=== PATIENT | male | born 1950 | race Caucasian/White ===

== ENCOUNTER 2023-09-18 10:13 | Inpatient (IN) | payer MEDICARE, OTHER, SELFPAY ==
[2023-09-17] VITALS (11 sets, daily range): BP systolic 98–142; BP diastolic 72–97; BMI 23.4
[2023-09-17 14:09] LABS: % Basophils 0.3 % (0-2); % Immature Granulocytes 0.3 % (0-0.5); % Monocytes 6.2 % (1.7-9.3); % Neutrophils 84.2 % (42.2-75.2); Absolute Immature Granulocytes 0.1 10^3/uL (0-0.05); Absolute Lymphocytes 1.3 10^3/uL (1.2-3.4); Absolute Monocytes 0.9 10^3/uL (0.1-0.6); Absolute Neutrophils 12.4 10^3/uL (1.4-6.5); Hematocrit 50.9 % (39.0-52.0); Hemoglobin 17.6 g/dL (13.0-18.0); Mean Corp Hgb Conc. 34.6 g/dL (33.0-37.0); Mean Corpuscular Hgb 29.6 pg (27.0-31.0); Mean Corpuscular Volume 85.5 fL (80.0-94.0); Mean Platelet Volume 10.7 fL (7.4-10.4); Nucleated Red Blood Cells % 0 % (-); Platelet Count 217 10^3/uL (130-400); Red Blood Cell Count 5.95 10^6/uL (4.70-6.10); Red Cell Dist. Width 16.7 % (11.5-14.5); White Blood Cell Count 14.7 10^3/uL (4.8-10.8)
[2023-09-17] MEDS: NSS 1000 IV ×2 (14:19→21:07)
[2023-09-17] MEDS: ZOFRAN 4 MG IV (14:20)
[2023-09-17 14:33] LABS: ALT (SGPT) 23 U/L (0-50); AST (SGOT) 31 U/L (17-59); Albumin 4.7 g/dl (3.5-5.0); Alkaline Phosphatase 102 U/L (38-126); Blood Urea Nitrogen 18 mg/dl (9-20); Calcium 10.3 mg/dl (8.4-10.2); Carbon Dioxide 32 mmol/L (22-30); Chloride 101 mmol/L (98-107); Estimated Creatinine Clearance 85 ml/min; Glucose 133 mg/dl (70-99); Potassium 4.9 mmol/L (3.5-5.1); Sodium 143 mmol/L (135-145); Total Protein 7.9 g/dl (6.3-8.2); eGFR > 60.00
[2023-09-17] MEDS: MORPHINE SULFATE 4 MG IV (15:29)
[2023-09-17 15:38] LABS: Lipase 42 U/L (23-300)
--- NOTE | 2023-09-17 17:15 | ED.GENMED ---
History of Present Illness
General
Chief Complaint: Abdominal Symptoms
Time Seen by Provider: 09/17/23 13:51
History of Present Illness
History of Present Illness:
73-year-old male with history of dementia and pulmonary fibrosis presents to the emergency department for evaluation of intractable vomiting abdominal pain for the past 24 hours. History is unable to be obtained from the patient's secondary to
dementia however he is frequently grabbing his right lower quadrant.
Past History
Past History
ED Past Medical History: Hypercholesterolemia, Psychiatric (anxiety/depression) and Other (dementia)
Social History
Tobacco: Non-smoker
Personal:
Living: with family
Review of Systems
Review of Systems
Allergies reviewed?: Yes
All Other Systems: ROS reviewed and negative except as documented in HPI and ROS
Phy Exam
Physical Exam
Physical Exam:
GEN: Ill appearing, clutching the abdomen
HEENT: Oral mucosa moist, no scleral icterus
Cardiac: Regular rate and rhythm
Lung: No respiratory distress, no tachypnea
Abdomen: Soft, focal tenderness to RLQ
MSK: No gross deformity or injuries
Skin: Good color, no pallor or jaundice, no rashes
Neuro: AO x3, moves all extremities freely
Psych: Calm, cooperative
Course
Orders/Labs/Results
Orders:
Orders
09/17/23 13:57
CMP [Comprehensive Metabolic Panel] Urgent
Complete Blood Count/With Diff Urgent
Lipase Urgent
Comment: ADD ON
09/17/23 14:08
Add On- LAB Urgent
Tests Added?: lipase
CT Abd/Pel (IV only)-DH only Urgent
Comment:
Reason For Exam: RLQ pain intractable vomiting
0.9% Sodium Chloride 1000 ml [Nss] 1,000 ml IV BOLUS
Ondansetron Injectable [Zofran] 4 mg IV NOW STA
09/17/23 15:27
Morphine Sulfate 4 mg IV NOW STA
09/17/23 17:20
Ketorolac [Toradol] 15 mg IV NOW STA
09/17/23 17:21
Piperacillin/Tazo 3.375 Gram [Zosyn] 3.375 gram in 50 ml IV NOW
Abnormal Lab Results
09/17/23
13:57
WBC 14.7 H 10^3/uL
(4.8-10.8)
RDW 16.7 H %
(11.5-14.5)
MPV 10.7 H fL
(7.4-10.4)
Abs Immat Gran (auto) 0.1 H 10^3/uL
(0-0.05)
Absolute Neuts (auto) 12.4 H 10^3/uL
(1.4-6.5)
Absolute Monos (auto) 0.9 H 10^3/uL
(0.1-0.6)
Neutrophils % 84.2 H %
(42.2-75.2)
Lymphocytes % 9.0 L %
(20.5-51.1)
Carbon Dioxide 32 H mmol/L
(22-30)
Glucose 133 H mg/dl
(70-99)
Calcium 10.3 H mg/dl
(8.4-10.2)
09/17/23 13:57
09/17/23 13:57
Vital Signs
Initial and Last Documented VS:
Initial Vital Signs
Temp Pulse Resp BP Pulse Ox
98.3 F 96 16 116/85 94
09/17/23 13:34 09/17/23 13:34 09/17/23 13:34 09/17/23 13:34 09/17/23 13:34
Last Documented Vital Signs
Temp Pulse Resp BP Pulse Ox
98.3 F 96 16 98/86 92
09/17/23 13:34 09/17/23 13:34 09/17/23 13:34 09/17/23 16:23 09/17/23 15:00
MDM/Problems Addressed
MDM/Problems Addressed:
Jejunitis seen on CT is likely infectious given the acute onset of symptoms. He does have leukocytosis which could be hemoconcentration in the setting of hypovolemia nevertheless will cover with IV antibiotics. Due to his advanced age and
persistent vomiting family would prefer the patient to be admitted for supportive care which I find to be reasonable
*Critical Care Note
Total Time (30-74mins, 75-104mins- exclusive of procedures): Not Applicable
ED Attending Note
-
Portions of this chart may have been created with voice recognition software.� Occasional wrong word or��sound alike� substitutions may have occurred due to the inherent limitations of voice recognition software.
Discharge Plan
Departure
Patient Disposition: Admit
Date of Disposition: 09/17/23
Time of Disposition: 17:25
Presentation/result/management discussed w/ accepting MD/DO: Hospitalist
Discharge Problem:
Jejunitis
Prescriptions:
No Action
ergocalciferol (vitamin D2) 400 UNIT tablet
400 unit PO DAILY
Patient Comments:
pt unsure of exact dose of pill
aspirin 81 MG tablet,chewable
81 mg PO DAILY
finasteride 5 MG tablet
1.25 mg PO DAILY
moshe-vl-[id number]-bat-eph-vcwwuxp-ast [krill oil] 1 EACH capsule
1 ea PO DAILY
atorvastatin 20 MG tablet
20 mg PO DAILY
aspirin 325 MG tablet
325 mg PO NOW
cephalexin 500 mg capsule
500 mg PO Q8H Qty: 21 0RF
Referrals:
Yaakov Latif MD [Family Provider] -
Interventions
Interventions:
*Risk Screen - Suicide Last Done: 09/17/23 13:45
*General Assessment Last Done: 09/17/23 13:45
*Neglect/Abuse Screening Last Done: 09/17/23 13:45
ED- Fall Risk Assessment Last Done: 09/17/23 13:45
*ED COVID-19 Vaccine History Last Done: 09/17/23 13:45
VT-Jadzok-Kqpunoojfy Assessment Last Done: 09/17/23 13:45
Discharge Date and Time
Print Language: AZERI
[2023-09-17] MEDS: ZOSYN 50 IV (17:24)
[2023-09-17] MEDS: TORADOL 15 MG IV (17:24)
--- NOTE | 2023-09-17 17:43 | HPS.HSE ---
Family Physician
-
Family Physician: Yaakov Latif MD
Chief Complaint
-
intractable vomiting and abdominal pain
History of Present Illness
The patient is a 73 yo male with PMH significant for dementia, HLD, and pulmonary fibrosis on home oxygen at 2-3L per nasal cannula, presents to the ED due to intractable vomiting and right lower quadrant abdominal pain for the past day. He is
unable to take any orals including water due to the pain. His is providing his history due to the patient's underlying dementia. No fever, no CP, no SOB, he uses depends for urinary incontinence that started about a month ago.
He received ED txt: IVF bolus 1 liter NS, Zofran 4 mg IV, Morphine 4 mg IV once, Toradol 15 mg IV once, IV Zosyn, CT a/p with IV contrast only
Medical History
Past Medical History
Past Medical History: Reports CAD (non-obstructive), Hypercholesterolemia and Other (Dementia, pulmonary fibrosis, insomnia)
Past Surgical History: Reports None
Social History
Tobacco: Former Smoker
Alcohol: None
Personal:
Living: With Family
Family History
Family History: Not pertinent
Allergies / Home Medications
Allergies reflects when Allergies were last updated in [facility].
Home Medications with original date entered in [facility]
Allergy/Medication List:
Allergies
Allergy/AdvReac Type Severity Reaction Status Date / Time
No Known Allergies Allergy Verified 09/17/23 13:36
Home Medications
aspirin 81 mg chewable tablet 81 mg PO DAILY 11/07/16
cholecalciferol (vitamin D3) 25 mcg (1,000 unit) tablet 25 mcg PO DAILY 09/17/23
donepezil 5 mg tablet 5 mg PO DAILY 09/17/23
loperamide 2 mg capsule (Imodium A-D) 2 mg PO Q4HPRN PRN loose stool 09/17/23
prednisone 10 mg tablet 10 mg PO DAILY 09/17/23
sertraline 100 mg tablet 100 mg PO Q48H 09/17/23
atorvastatin 2.5 mg three times per week PO
Review of Systems
-
A 12 point ROS was completed and negative except as noted: Yes
Physical Exam
Vital Signs
Vital Signs
Temp Pulse Resp BP Pulse Ox
98.3 F 96 16 98/86 92
09/17/23 13:34 09/17/23 13:34 09/17/23 13:34 09/17/23 16:23 09/17/23 15:00
Physical Exam
General: Comfortable and Other (slightly agitated pulling/picking at lines and pulse oximeter)
HEENT: NormoCephalic, Anicteric and Moist mucous membranes
Respiratory: Clear
Cardiac: S1/S2 and Regular Rhythm
GI: Soft, Non Distended and Normal Bowel Sounds
Musculoskeletal: No Clubbing, No Cyanosis and No Edema
Skin: Warm and Dry
Neuro: Awake and Other (sleepy, underlying dementia)
Psych: Calm
Laboratory Results
-
09/17/23 13:57
09/17/23 13:57
Laboratory Results
Total Bilirubin 1.0 mg/dl (0.2-1.3) 09/17/23 13:57
AST 31 U/L (17-59) 09/17/23 13:57
ALT 23 U/L (0-50) 09/17/23 13:57
Alkaline Phosphatase 102 U/L (38-126) 09/17/23 13:57
Lipase 42 U/L (23-300) 09/17/23 13:57
Data Reviewed
-
CT Scan: Report Reviewed by me (iinfrarenal abdominal aortic aneurysm measuring 3.3 cm. There is a large left common iliac artery aneurysm measuring 3.8 cm with a large amount of noncalcified thrombus information along the posterior wall. This
narrows the lumen by at least 50%. There is a right common iliac artery aneurysm measuri)
Impression/Plan
-
IMPRESSION:
# Concern for Jejunitis, likely infectious etiology though possible inflammatory versus infectious, less likely ischemic, no evidence for obstruction nor diverticulitis
-CT a/p no oral contrast due to vomiting (IV constrast) - small bowel dilatation with associated mild small bowel wall thickening of the probable distal jejunum. Dilatation may be due to ileus. Developing obstruction cannot be excluded.
-abdomen is soft with normal bowel sounds at this time, will continue serial abdominal examination, monitor clinically
-continue IV Zosyn
-IV fluids
-NPO
-GI consultation placed and appreciated
-supportive management with pain medications, prn anti-emetics
-EKG in am for QT monitoring on Zofran prn
#Pulmonary fibrosis, on chronic prednisone 10 mg daily, stable at this time
-will give IV steroids for now until tolerating orals
-cont home O2 2 L NC and pulse oximetry monitoring
#Incidental findings on CT
-infrarenal abdominal aortic aneurysm measuring 3.3 cm.
-Left common iliac artery aneurysm measuring 3.8 cm with a large amount of noncalcified thrombus information along the posterior wall.
-Right common iliac artery aneurysm measuring 2.4 cm.
#Dementia, at baseline
DVT proph-Lovenox
Full Code confirmed with family
--- NOTE | 2023-09-17 21:00 | PTCARENOTE ---
Pt transferred from ED to 3W via stretcher, pt was a stand and pivot to bed. Pt very confuse, but able to be redirected. Pt vitals stable, call lake within reach and pt placed on bed alarm. Will continue to monitor.
[2023-09-17] MEDS: SOLU-CORTEF 25 MG IV (21:29)
[2023-09-17] MEDS: MORPHINE SULFATE 2 MG IV (23:49)
[2023-09-18 03:00] VITALS: BP 140/87
[2023-09-18] MEDS: MORPHINE SULFATE 2 MG IV ×3 (03:45→21:27)
[2023-09-18 06:00] VITALS: BMI 23.7
[2023-09-18] MEDS: ZOSYN 50 IV ×4 (06:08→23:11)
[2023-09-18 07:00] VITALS: BP 114/75
[2023-09-18] MEDS: LOW STRENGTH ASPIRIN 81 MG PO (08:20)
[2023-09-18] MEDS: ARICEPT 5 MG PO (08:20)
--- NOTE | 2023-09-18 09:11 | CON.GI ---
Addendum entered and electronically signed by Nash Carlson MD 09/18/23 16:08:
I personally performed a history and physical exam of the patient and discussed management with the resident. I reviewed the resident's note and agree with the documented findings and plan of care HPI/CC.
73-year-old male significant history of dementia, pulmonary fibrosis presenting with vomiting, abdominal pain, decreased p.o. intake. He underwent a CT scan here which showed jejunitis. He also had a white blood cell count up to 14.7. Patient's
history is very limited due to his dementia.
At this time, recommend antibiotics, advance diet as tolerated. He has minimal tenderness in his abdomen. I started him on a clear liquid diet. If there is any concern about his intake, consider speech pathology evaluation. Typically would
recommend MR enterography as an outpatient but with his dementia would likely hold off unless he has ongoing symptoms. Most likely this is infectious with the elevated white blood cell count and his symptomatology.
Original Note:
Medical History
Chief Complaint / HPI
Chief Complaint: Vomiting, abdominal pain
History of Present Illness:
History is limited due to patient's dementia and is mostly based on chart review.
Patient is a 73 yo M with PMH significant for dementia, HLD, and pulmonary fibrosis who was admitted with persistent vomiting, RLQ abdominal pain and inability to tolerate any orals. Symptoms seem to have appeared in an acute setting. Patient denies
loose stools. Last bowel movement was this a.m. which was soft.
On admission in ED, patient did not have fever. Labs revealed mild leukocytosis. CT (without oral contrast) showed mild small bowel dilatation with associated mild small bowel wall thickening of the probable distal jejunum. No signs of current
obstruction but developing obstruction could not be excluded.
We are consulted for evaluation of jejunitis.
Past Medical History
Past Medical History: Hypercholesterolemia and Other (dementia, pulmonary fibrosis)
Social History
Tobacco: Non-Smoker
Alcohol: None
Personal:
Living: With Family
Allergies / Home Medications
Allergy/AdvReac Type Severity Reaction Status Date / Time
No Known Allergies Allergy Verified 09/17/23 13:36
�Medication �Instructions �Recorded
aspirin 81 mg chewable tablet 81 mg PO DAILY Blood Clot 11/07/16
Prevention/Tx
cholecalciferol (vitamin D3) 25 25 mcg PO DAILY Supplement 09/17/23
mcg (1,000 unit) tablet
donepezil 5 mg tablet 5 mg PO DAILY Neurological 09/17/23
Condition
loperamide 2 mg capsule (Imodium 2 mg PO Q4HPRN PRN loose stool 09/17/23
A-D)
prednisone 10 mg tablet 10 mg PO DAILY Anti-Inflammatory 09/17/23
sertraline 100 mg tablet 100 mg PO Q48H Mental 09/17/23
Health/Anxiety
Review of Systems
-
Unable to obtain full review of systems at this time due to: Dementia
History Source: Patient
Vital Signs
Temp Pulse Resp BP Pulse Ox
97.8 F 91 17 114/75 97
09/18/23 07:00 09/18/23 07:00 09/18/23 07:00 09/18/23 07:00 09/18/23 07:00
Physical Exam
Exam
General: Well Developed and No Apparent Distress
HEENT: Anicteric and Moist Mucous Membranes
Cardiac: S1/S2 and Regular Rhythm
GI: Soft, Non Distended, Normal Bowel Sounds and Other (Mild RLQ tenderness)
Neuro: Awake, Alert and Oriented (oriented to time and self)
Psych: Calm
Results
WBC 14.7 10^3/uL (4.8-10.8) H 09/17/23 13:57
Hgb 17.6 g/dL (13.0-18.0) 09/17/23 13:57
Hct 50.9 % (39.0-52.0) 09/17/23 13:57
MCV 85.5 fL (80.0-94.0) 09/17/23 13:57
Plt Count 217 10^3/uL (130-400) 09/17/23 13:57
Absolute Neuts (auto) 12.4 10^3/uL (1.4-6.5) H 09/17/23 13:57
Sodium 143 mmol/L (135-145) 09/17/23 13:57
Potassium 4.9 mmol/L (3.5-5.1) 09/17/23 13:57
Chloride 101 mmol/L (98-107) 08 13:57
Carbon Dioxide 32 mmol/L (22-30) H 09/17/23 13:57
BUN 18 mg/dl (9-20) 08 13:57
Creatinine 0.8 mg/dL (0.7-1.3) 09/17/23 13:57
Calcium 10.3 mg/dl (8.4-10.2) H 09/17/23 13:57
Total Bilirubin 1.0 mg/dl (0.2-1.3) 09/17/23 13:57
AST 31 U/L (17-59) 09/17/23 13:57
ALT 23 U/L (0-50) 09/17/23 13:57
Alkaline Phosphatase 102 U/L (38-126) 09/17/23 13:57
Lipase 42 U/L (23-300) 09/17/23 13:57
Diagnostic Image Results:
Prior GI Procedures:
EGD:
Colonoscopy:
Assessment / Plan
-
Patient is alert and oriented to self. Is afebrile. Very mild RLQ tenderness on palpation. Abdomen is soft with normal bowel sounds. Patient is able to pass gas. No diarrhea reported by nursing staff. Is currently n.p.o..
# Jejunitis
Ddx includes infection vs inflammation and less likely ischemia.
-Continue IV Zosyn
-Continue supportive management with IV fluids, antiemetics as needed, pain management
-May advance diet later in the day if tolerated
-Monitor daily CBC, BMP
-May consider MR enterography as outpatient
-
-
Thank you for consultation and allowing me to participate in the patient's care. Please call the [facility] GI physician during the after hours with any questions or concerns.
[2023-09-18] MEDS: SOLU-CORTEF 25 MG IV ×2 (10:12→21:27)
[2023-09-18 10:32] LABS: % Basophils 0.3 % (0-2); % Eosinophils 0.1 % (0-6); % Immature Granulocytes 0.4 % (0-0.5); % Lymphocytes 5.2 % (20.5-51.1); % Monocytes 8.4 % (1.7-9.3); % Neutrophils 85.6 % (42.2-75.2); Absolute Immature Granulocytes 0.1 10^3/uL (0-0.05); Absolute Lymphocytes 0.7 10^3/uL (1.2-3.4); Absolute Monocytes 1.1 10^3/uL (0.1-0.6); Absolute Neutrophils 10.9 10^3/uL (1.4-6.5); Hemoglobin 15.6 g/dL (13.0-18.0); Mean Corp Hgb Conc. 33.2 g/dL (33.0-37.0); Mean Corpuscular Hgb 28.9 pg (27.0-31.0); Mean Platelet Volume 11.3 fL (7.4-10.4); Nucleated Red Blood Cells % 0 % (-); Platelet Count 181 10^3/uL (130-400); Red Cell Dist. Width 16.3 % (11.5-14.5); White Blood Cell Count 12.8 10^3/uL (4.8-10.8)
--- NOTE | 2023-09-18 10:48 | W.PN.HOSP.TC ---
Today's Communication/Plan
-
Keep NPO for now
IVF
IV Abx
Repeat abd x ray in AM
Assessment / Plan
Assessment / Plan
Physical Exam
General: Comfortable in bed.
HEENT: Normocephalic, Anicteric and Moist mucous membranes
Respiratory: Clear
Cardiac: S1/S2 and Regular Rhythm
GI: Soft, reports tenderness in right side of abdomen upon deep palpation
Musculoskeletal: No Clubbing, No Cyanosis and No Edema
Skin: Warm and Dry
Neuro: Awake and Other (sleepy, underlying dementia)
Psych: Calm
# Concern for Jejunitis, likely infectious etiology though possible inflammatory versus infectious, less likely ischemic, no evidence for obstruction nor diverticulitis
-CT a/p no oral contrast due to vomiting (IV contrast) - small bowel dilatation with associated mild small bowel wall thickening of the probable distal jejunum. Dilatation may be due to ileus. Developing obstruction cannot be excluded.
-abdomen is soft with normal bowel sounds at this time, will continue serial abdominal examination, monitor clinically
-continue IV Zosyn
-IV fluids
-NPO
-supportive management with pain medications, prn anti-emetics
-EKG in am for QT monitoring on Zofran prn
#Pulmonary fibrosis, on chronic prednisone 10 mg daily, stable at this time
-will give IV steroids for now until tolerating orals
-cont home O2 2 L NC and pulse oximetry monitoring
#Incidental findings on CT
-infrarenal abdominal aortic aneurysm measuring 3.3 cm.
-Left common iliac artery aneurysm measuring 3.8 cm with a large amount of noncalcified thrombus information along the posterior wall.
-Right common iliac artery aneurysm measuring 2.4 cm.
#Dementia, at baseline
DVT proph-Lovenox
Full Code
Total time spent to see the patient, examine the patient on the floor, review data and lab results, discuss treatment plan with patient, nursing staff around 55 minutes.
Anticipated Discharge: > 48 hours
Subjective/Interval History
-
Date of Service: September 18, 2023
No chest pain
No sob
He reports abd discomfort on exam
Objective Data
-
Labs:
Laboratory Results
09/18/23
09:56
WBC 12.8 H
Hgb 15.6
Hct 47.0
Plt Count 181
Sodium Pending
Potassium Pending
Chloride Pending
Carbon Dioxide Pending
BUN Pending
Creatinine Pending
Glucose Pending
Calcium Pending
Vital Signs:
Vital Signs
Temp Pulse Resp BP Pulse Ox
97.8 F 91 17 114/75 97
09/18/23 07:00 09/18/23 07:00 09/18/23 07:00 09/18/23 07:00 09/18/23 08:00
I&O
09/17/23 09/18/23 09/19/23
06:59 06:59 06:59
Intake Total 0 / 0
Balance 0 / 0
[2023-09-18 10:51] VITALS: BP 125/80
[2023-09-18 13:33] LABS: Blood Urea Nitrogen 21 mg/dl (9-20); Carbon Dioxide 26 mmol/L (22-30); Chloride 106 mmol/L (98-107); Estimated Creatinine Clearance 85 ml/min; Glucose 121 mg/dl (70-99); Potassium 4.4 mmol/L (3.5-5.1); Sodium 139 mmol/L (135-145); eGFR > 60.00
[2023-09-18 15:13] VITALS: BP 135/79
[2023-09-18] MEDS: LOVENOX 40 MG SC (17:04)
[2023-09-18 19:39] VITALS: BP 114/77
[2023-09-18 23:03] VITALS: BP 132/88
[2023-09-19] VITALS (8 sets, daily range): BP systolic 110–162; BP diastolic 73–94; PULSE 99; O2SAT 96; BMI 23.2
[2023-09-19] MEDS: MORPHINE SULFATE 2 MG IV (05:06)
[2023-09-19] MEDS: ZOSYN 50 IV ×3 (05:06→17:08)
[2023-09-19 07:59] LABS: Hemoglobin 15.5 g/dL (13.0-18.0); Mean Corp Hgb Conc. 34.4 g/dL (33.0-37.0); Mean Corpuscular Hgb 29.8 pg (27.0-31.0); Mean Corpuscular Volume 86.4 fL (80.0-94.0); Mean Platelet Volume 11.3 fL (7.4-10.4); Platelet Count 165 10^3/uL (130-400); Red Blood Cell Count 5.21 10^6/uL (4.70-6.10); Red Cell Dist. Width 15.8 % (11.5-14.5); White Blood Cell Count 12.7 10^3/uL (4.8-10.8)
[2023-09-19 08:31] LABS: Blood Urea Nitrogen 22 mg/dl (9-20); Carbon Dioxide 29 mmol/L (22-30); Estimated Creatinine Clearance 85 ml/min; Potassium 3.8 mmol/L (3.5-5.1); eGFR > 60.00
[2023-09-19] MEDS: ZOLOFT 100 MG PO (08:38)
[2023-09-19] MEDS: LOW STRENGTH ASPIRIN 81 MG PO (08:38)
[2023-09-19] MEDS: ARICEPT 5 MG PO (08:38)
[2023-09-19] MEDS: PROTONIX 20 MG PO (08:39)
[2023-09-19 08:41] LABS: Calcium 9.3 mg/dl (8.4-10.2); Chloride 102 mmol/L (98-107); Glucose 112 mg/dl (70-99); Sodium 139 mmol/L (135-145)
--- NOTE | 2023-09-19 09:30 | W.PN.HOSP.TC ---
Addendum entered and electronically signed by Patrick Dill MD 09/19/23 14:21:
Addendum
Patient could not finish full liquid diet. He felt fall with less than 50% of the tray. His belly nontender but possibly distended. Patient was unable to provide with history
Discussed with GI. Will keep the patient n.p.o. and ask surgery for evaluation.
Continue with IV antibiotic
Updated family and son Fredy Rodriges.
Addendum
d/w surgery, recommend to c/w bowel rest, hold diet, IV Abx, repeat x ray in am.
Will order IVF
change PPI to IV
ok with sips and oral meds.
Appreciate surgery input
End
Original Note:
Today's Communication/Plan
-
.
Assessment / Plan
Assessment / Plan
Physical Exam
General: Comfortable in bed.
HEENT: Normocephalic, Anicteric and Moist mucous membranes
Respiratory: Clear
Cardiac: S1/S2 and Regular Rhythm
GI: Soft, No tenderness in the abdomen upon deep palpation
Musculoskeletal: No Clubbing, No Cyanosis and No Edema
Skin: Warm and Dry
Neuro: Awake and Other (sleepy, underlying dementia)
Psych: Calm
# Concern for Jejunitis, likely infectious etiology though possible inflammatory versus infectious, less likely ischemic, no evidence for diverticulitis
Possibly developing ileus now
WBC still at 12, mostly steroid reaction. No fevers.
He seems to tolerate liquid well, no pain, no tenderness on exam today. Did not need anti-nausea medication.
It is hard to tell with him unable to express himself.
- repeat x ray showed dilated small bowel loops.
-abdomen is soft with normal bowel sounds at this time, will continue serial abdominal examination, monitor clinically
-continue IV Zosyn for now.
- trial of full liquid, pt felt full after eating 35% of the tray per staff. But NPO for now per GI until surgery input.
-supportive management with pain medications, prn anti-emetics
-EKG , normal QT interval.
Appreciate GI, surgery input.
#Pulmonary fibrosis, on chronic prednisone 10 mg daily, stable at this time
- Given IV steroids , will wean down to his usual dose. No hypotension.
-cont home O2 2 L NC and pulse oximetry monitoring
#Incidental findings on CT
-infrarenal abdominal aortic aneurysm measuring 3.3 cm.
-Left common iliac artery aneurysm measuring 3.8 cm with a large amount of noncalcified thrombus information along the posterior wall.
-Right common iliac artery aneurysm measuring 2.4 cm.
#Dementia, at baseline
reported agitation with morphine, will avoid it. Use Tylenol if needed
Mitts were placed last night. Removed today. was updated.
C/W Aricept, Zoloft [id number].
DVT proph-Lovenox
Full Code
Total time spent to see the patient, examine the patient on the floor, review data and lab results, discuss treatment plan with patient, , son, nursing staff around 55 minutes.
Anticipated Discharge: 24 - 48 hours
Subjective/Interval History
-
Date of Service: September 19, 2023
No sob
No chest pain
Denies abd pain
Objective Data
-
Labs:
Laboratory Results
09/19/23
07:43
WBC 12.7 H
Hgb 15.5
Hct 45.0
Plt Count 165
Sodium 139
Potassium 3.8
Chloride 102
Carbon Dioxide 29
BUN 22 H
Creatinine 0.8
Glucose 112 H
Calcium 9.3
Vital Signs:
Vital Signs
Temp Pulse Resp BP Pulse Ox
97.9 F 68 17 140/76 98
09/19/23 06:51 09/19/23 06:51 08/06/24 06:51 09/19/23 06:51 09/19/23 06:51
I&O
09/18/23 09/19/23 09/20/23
06:59 06:59 06:59
Intake Total 0 / 0 60 / 60
Balance 0 / 0 60 / 60
[2023-09-19] MEDS: SOLU-CORTEF 25 MG IV (10:16)
--- NOTE | 2023-09-19 12:29 | PTCARENOTE ---
B/L mitts discontinued at 1225. MD Dill made aware. sitter remains. bed low, rails up x3. bed alarm on. belongings and water in reach.
--- NOTE | 2023-09-19 12:47 | PN.CDI ---
CDI
- -
CDI:
Physician Documentation Request
Admit Date: 09/18/23 10:13
Dear Doctor Aniyah,
Please review the following and provide your response in the progress notes.
Clinical Indicators:
- per H&P 'pulmonary fibrosis on home oxygen at 2-3L per nasal cannula'
- Admission on room air at 94%
- 1-2L O2 with pulse ox >91%
Please clarify which of the following accurately represents the patient's respiratory status:
Chronic hypoxic respiratory failure
Chronic hypoxia
Other
Additional information for Respiratory Failure:
Recognized criteria for Respiratory Failure (Source: [facility] Dec 2012)
ABGs: (1 or more) Symptoms Please indicate type if known
1. p)2 <60 or RA SPO2 <91% on RA 1. Tachypnea, SOB, dyspnea Hypoxic
2. pCO2 50 and pH <7.35 2. Use of accessory muscles Hypercapnic
3. pO2 decrease of pCO2 increase by 3. Pallor or cyanosis Hypoxic and Hypercapnic
10 mmHg from baseline if known 4. Anxiety or restlessness Unable to determine
5. Unable to speak in full sentences
Supplemental O2 of > 40% (5LPM) Intubation is not required
Use of terms such as suspected, likely, concern for, or probable (associated with a specific diagnosis that is being evaluated, monitored, or treated as if it exists) are acceptable and can be coded in the inpatient setting, when documented at the
time of discharge.
Thank you,
Danika Pabon RN
CDI Specialist
Please use your independent medical judgment in providing your response.
--- NOTE | 2023-09-19 12:52 | PN.CDI ---
Addendum entered and electronically signed by Patrick Dill MD 09/19/23 13:54:
Chronic hypoxic respiratory failure requiring continuous use home O2
Original Note:
CDI
- -
CDI:
Physician Documentation Request
Admit Date: 09/18/23 10:13
Dear Doctor Aniyah,
Please review the following and provide your response in the progress notes.
Clinical Indicators:
- per H&P 'pulmonary fibrosis on home oxygen at 2-3L per nasal cannula'
- Admission on room air at 94%
- 1-2L O2 with pulse ox >91%
Please clarify a diagnosis associated with use of home O2
Chronic hypoxic respiratory failure requiring continuous use home O2
Hypoxia requiring intermittent home O2 use
Other
Additional information for Respiratory Failure:
Recognized criteria for Respiratory Failure (Source: [facility] Dec 2012)
ABGs: (1 or more) Symptoms Please indicate type if known
1. p)2 <60 or RA SPO2 <91% on RA 1. Tachypnea, SOB, dyspnea Hypoxic
2. pCO2 50 and pH <7.35 2. Use of accessory muscles Hypercapnic
3. pO2 decrease of pCO2 increase by 3. Pallor or cyanosis Hypoxic and Hypercapnic
10 mmHg from baseline if known 4. Anxiety or restlessness Unable to determine
5. Unable to speak in full sentences
Supplemental O2 of > 40% (5LPM) Intubation is not required
Use of terms such as suspected, likely, concern for, or probable (associated with a specific diagnosis that is being evaluated, monitored, or treated as if it exists) are acceptable and can be coded in the inpatient setting, when documented at the
time of discharge.
Thank you,
Danika Pabon RN
CDI Specialist
Please use your independent medical judgment in providing your response.
--- NOTE | 2023-09-19 13:07 | W.PN.GI.CBS2 ---
Addendum entered and electronically signed by Molly Rosario MD 09/19/23 13:32:
I saw and examined the patient.
The resident's note was reviewed and I agree with the note.
Comment: No events overnight.
Abdominal x-ray done midmorning showing abnormally dilated loops of small bowel throughout the abdomen with relative paucity of gas, some gas in the descending and rectosigmoid colon. Findings suggesting small bowel obstruction.
Will keep patient NPO.
Last bowel movement was 09/17/23.
Clinically does not present like small bowel obstruction might need to get surgical opinion.
Continue antibiotics for possible jejunal inflammation.
. Will follow
Original Note:
Today's Communication / Plan
-
advance diet to low residue if tolerates--can be discharged if can tolerate and remains stable
Assessment / Plan
-
Patient is alert and oriented to self. Is afebrile. No TTP. Abdomen is soft with normal bowel sounds. Patient is able to pass gas. Is currently on full liquids. Leukocytosis stable.
# Jejunitis
Ddx includes infection vs inflammation and less likely ischemia.
-Continue IV Zosyn
-Continue supportive management with IV fluids, antiemetics as needed, pain management
-May advance diet to low residue if tolerated
-Monitor daily CBC, BMP
-May consider MR enterography as outpatient
-If patient remains stable and can tolerate diet, can be discharged from GI standpoint
Subjective
Subjective
Date of Service: September 19, 2023
Patient is alert but pleasantly confused. History is limited due to patient's dementia. Nursing staff do not report any fevers, nausea/vomiting, or diarrhea.
Objective
Data Reviewed
Laboratory Data:
Laboratory Results
09/19/23 07:43
09/19/23 07:43
Laboratory Results
Magnesium 2.0 mg/dl (1.6-2.3) 09/18/23 12:40
Total Bilirubin 1.0 mg/dl (0.2-1.3) 09/17/23 13:57
AST 31 U/L (17-59) 09/17/23 13:57
ALT 23 U/L (0-50) 09/17/23 13:57
Alkaline Phosphatase 102 U/L (38-126) 09/17/23 13:57
Lipase 42 U/L (23-300) 09/17/23 13:57
Vital Signs and I&O:
Vital Signs
Temp Pulse Resp BP Pulse Ox
97.7 F 92 17 150/94 98
09/19/23 10:00 09/19/23 10:00 09/19/23 10:00 09/19/23 10:00 09/19/23 10:00
I&O
09/18/23 09/19/23 09/20/23
06:59 06:59 06:59
Intake Total 0 / 0 60 / 60
Balance 0 / 0 60 / 60
Physical Exam
Physical Exam
HEENT: Anicteric and Moist mucous membranes
Cardiology: Normal Sinus Rhythm, S1 and S2
GI: Soft, Non Distended and Non Tender
Extremities: No Edema
--- NOTE | 2023-09-19 14:18 | CON.GS ---
Medical History
-
Chief Complaint: Abdominal pain, nausea, emesis
History of Present Illness:
Patient is a 73 yo M with a PMH of dementia and pulmonary fibrosis (on 2-3 L home O2 and Prednisone 10 mg) who presented to with nausea and vomiting. History from patient is limited. Current history was obtained from chart review and in
discussions with his . Symptoms began around Monday (09/15). Prior to this his states that he was doing well and eating 3 meals a day. Noted to have abdominal pain and distention, and severe nausea and vomiting. No reports of bloody
bowel movements. He has previously had issues with looser stools on Donepezil; because of this he currently takes Imodium 4 mg daily. No recent changes in his bowel or dementia medications. does report that he went out to eat at a diner on
Monday (09/12). No recent colonoscopy. No fevers, chills, night sweats, or weight loss.
Admission CT scan demonstrates inflammation of the jejunum with surrounding edema and inflammation, no pneumatosis or free air, no clear transition point, no contrast. Repeat abdominal x-ray this a.m. demonstrates dilated loops of small bowel
containing air, some air visualized within the descending colon which appears to be more dilated than on previous CT scan, no evidence of free air. Because of this abdominal X-ray he was transition from clears to NPO. No reports of nausea or
vomiting per nursing. Last bowel movement was 48 hours ago.
Past Medical History
Past Medical History: Psychiatric (Dementia) and Other (Pulmonary fibrosis)
Past Surgical History: None
Social History
Tobacco: Non-Smoker
Alcohol: None
Drug: None
Personal:
Living: With Family
Family History
Family History: Reviewed & Noncontributory
Allergies / Home Medications
Allergy/AdvReac Type Severity Reaction Status Date / Time
No Known Allergies Allergy Verified 09/17/23 13:36
�Medication �Instructions �Recorded �Confirmed �Type
aspirin 81 mg chewable tablet 81 mg PO DAILY Blood Clot 11/07/16 09/17/23 History
Prevention/Tx
cholecalciferol (vitamin D3) 25 25 mcg PO DAILY Supplement 09/17/23 09/17/23 History
mcg (1,000 unit) tablet
donepezil 5 mg tablet 5 mg PO DAILY Neurological 09/17/23 09/17/23 History
Condition
loperamide 2 mg capsule (Imodium 2 mg PO Q4HPRN PRN loose stool 09/17/23 09/17/23 History
A-D)
prednisone 10 mg tablet 10 mg PO DAILY Anti-Inflammatory 09/17/23 09/17/23 History
sertraline 100 mg tablet 100 mg PO Q48H Mental 09/17/23 09/17/23 History
Health/Anxiety
Review of Systems
-
A 10 point review of systems was completed, and was negative except as per HPI.
Physical Exam
Vital Signs
Temp Pulse Resp BP Pulse Ox
97.7 F 92 17 150/94 98
09/19/23 10:00 09/19/23 10:00 09/19/23 10:00 09/19/23 10:00 09/19/23 10:00
09/18/23 09/19/23 09/20/23
06:59 06:59 06:59
Actual Weight 75.024 kg 73.346 kg
Body Mass Index (BMI) 23.2
Lab Results
09/19/23 07:43
09/19/23 07:43
WBC 12.7 10^3/uL (4.8-10.8) H 09/19/23 07:43
Hgb 15.5 g/dL (13.0-18.0) 09/19/23 07:43
Hct 45.0 % (39.0-52.0) 09/19/23 07:43
Plt Count 165 10^3/uL (130-400) 09/19/23 07:43
Abs Immat Gran (auto) 0.1 10^3/uL (0-0.05) H 09/18/23 09:56
Neutrophils % 85.6 % (42.2-75.2) H 09/18/23 09:56
Physical Exam
General: No Apparent Distress
HEENT: Normocephalic and Anicteric
Respiratory: Non Labored Respirations
Cardiac: Regular Rhythm
GI: Soft, Non Tender, Non Distended and Other (Nonperitoneal)
Musculoskeletal: No Edema
Skin: Warm and Dry
Neuro: Nonfocal/Grossly Intact
Data Reviewed
-
Radiology: Image Personally Visualized and interpreted and Report Reviewed by me
CT Scan: Image Personally Visualized and interpreted and Report Reviewed by me
Labs: Labs Reviewed by me
Assessment / Plan
-
Patient is a 73 yo M p/w ileus vs. partial SBO secondary to infectious or inflammatory in origin vs. dysmotility and medication induced
Clinically patient appears well with a soft and benign abdomen. CT does not demonstrate any evidence of pneumatosis or free air, low likelihood of bowel ischemia. Abdominal x-ray demonstrates significantly dilated loops of small bowel filled with
some air into the colon. His persistent leukocytosis would further support that he is not like completely resolved his underlying pathology. Recommend a brief period of bowel rest with sips of clears for comfort and repeat abdominal X-ray in the
morning. If stable or worsening recommend UGI. If improvement would trial clears and dietary advancement as tolerated. Of note, patient's and son were very clear upfront that if any surgical intervention is deemed necessary then they would
request transfer to [facility]. and son were updated, all questions answered.
-- Sips of clears for comfort
-- X-ray abdomen in AM
-- IVF
-- Abx: Zosyn
[2023-09-19] MEDS: D5/0.9% SODIUM CHLORIDE 1000 IV (14:52)
[2023-09-19] MEDS: LOVENOX 40 MG SC (17:08)
--- NOTE | 2023-09-19 19:30 | PTCARENOTE ---
Pt increasing agitated, ripped out peripheral IV, attempting to get oob. Attempted to redirect and reorient Pt without success. New IV placed. Pt continues to be aggressive, states 'I am going to whop you with this!', in reference to call [place]
remote. 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 Med sitter in place. This RN called Pt's to update her on his status.
[2023-09-19] MEDS: SOLU-CORTEF 10 MG IV (21:16)
[2023-09-20] VITALS (7 sets, daily range): BP systolic 109–147; BP diastolic 71–93; PULSE 107; BMI 23.2
[2023-09-20] MEDS: ZOSYN 50 IV ×4 (00:28→17:53)
[2023-09-20] MEDS: D5/0.9% SODIUM CHLORIDE 1000 IV ×3 (01:49→22:49)
[2023-09-20] MEDS: ZOFRAN 4 MG IV ×2 (03:18→12:48)
[2023-09-20 06:19] LABS: Hematocrit 44.3 % (39.0-52.0); Hemoglobin 15.4 g/dL (13.0-18.0); Mean Corp Hgb Conc. 34.8 g/dL (33.0-37.0); Mean Corpuscular Volume 86.4 fL (80.0-94.0); Mean Platelet Volume 10.7 fL (7.4-10.4); Platelet Count 159 10^3/uL (130-400); Red Blood Cell Count 5.13 10^6/uL (4.70-6.10); Red Cell Dist. Width 15.6 % (11.5-14.5); White Blood Cell Count 12.9 10^3/uL (4.8-10.8)
[2023-09-20 07:22] LABS: ALT (SGPT) 24 U/L (0-50); AST (SGOT) 38 U/L (17-59); Albumin 3.4 g/dl (3.5-5.0); Alkaline Phosphatase 59 U/L (38-126); Blood Urea Nitrogen 19 mg/dl (9-20); Calcium 8.5 mg/dl (8.4-10.2); Carbon Dioxide 30 mmol/L (22-30); Chloride 104 mmol/L (98-107); Estimated Creatinine Clearance 113 ml/min; Glucose 114 mg/dl (70-99); Potassium 3.4 mmol/L (3.5-5.1); Sodium 140 mmol/L (135-145); Total Bilirubin 1.1 mg/dl (0.2-1.3); Total Protein 6.1 g/dl (6.3-8.2); eGFR > 60.00
[2023-09-20] MEDS: ARICEPT 5 MG PO (08:45)
[2023-09-20] MEDS: PROTONIX IV 40 MG IV (08:45)
[2023-09-20] MEDS: LOW STRENGTH ASPIRIN 81 MG PO (08:45)
[2023-09-20] MEDS: DULCOLAX 10 MG RECTAL (08:51)
--- NOTE | 2023-09-20 09:07 | W.PN.HOSP.TC ---
Addendum entered and electronically signed by Patrick Dill MD 09/20/23 18:51:
Addendum
CT of abdomen and pelvis was reviewed. d/w surgery, recommend surgical evaluation. Family wants to see surgical intervention at [facility]. I called son Fredy Rodriges, he requested the transfer and gave a consent for transfer. I called [place]
transfer center and spoke with health and physical education professor surgery Dr Madi Cuellar who accepted the patient. D/w Nursing staff.
Total discharge time spent to see the patient, examine the patient on the floor, review data and lab results, discuss discharge plan with family, surgery, [facility] doctor, , nursing staff around 75 minutes.
Addendum entered and electronically signed by Patrick Dill MD 09/20/23 09:25:
Addendum
Hypokalemia, replace with IC KCl
End
Original Note:
Today's Communication/Plan
-
X ray of abdomen
rectal Dulcolax
IVF
IV Abx
Remove restraints during daytime.
Assessment / Plan
Assessment / Plan
Physical Exam
General: Comfortable in bed.
HEENT: Normocephalic, Anicteric and Moist mucous membranes
Respiratory: Clear
Cardiac: S1/S2 and Regular Rhythm
GI: Soft, No tenderness in the abdomen upon deep palpation
Musculoskeletal: No Clubbing, No Cyanosis and No Edema
Skin: Warm and Dry
Neuro: Awake and Other (sleepy, underlying dementia)
Psych: Calm
# SOB/ ileus with acute Jejunitis, likely infectious etiology though possible inflammatory versus infectious, less likely ischemic, no evidence for diverticulitis
He denies pain or tenderness on exam. Abdomen is not distended on exam
Receiving IVF and IV Abx with bowel rest
Trial of Dulcolax suppository this morning
Repeating x ray this morning
Appreciate GI, surgery input.
# leukocytosis, could be also reactive to steroid.
#Pulmonary fibrosis, on chronic prednisone 10 mg daily, stable at this time
- Given IV steroids while NPO. , will wean down to his usual dose when oral is allowed. No hypotension.
-cont home O2 2 L NC and pulse oximetry monitoring
#Incidental findings on CT
-infrarenal abdominal aortic aneurysm measuring 3.3 cm.
-Left common iliac artery aneurysm measuring 3.8 cm with a large amount of noncalcified thrombus information along the posterior wall.
-Right common iliac artery aneurysm measuring 2.4 cm.
#Dementia, at baseline
reported agitation with morphine, we stopped it. Use Tylenol if needed
Restraints were placed last night. was updated.
C/W Aricept, Zoloft [id number].
DVT proph-Lovenox
Full Code
Total time spent to see the patient, examine the patient on the floor, review data and lab results, discuss treatment plan with patient, , son, nursing staff around 55 minutes.
Anticipated Discharge: 24 - 48 hours
Subjective/Interval History
-
Date of Service: September 20, 2023
Denies pain or tenderness on exam
Objective Data
-
Labs:
Laboratory Results
09/20/23
06:07
WBC 12.9 H
Hgb 15.4
Hct 44.3
Plt Count 159
Sodium 140
Potassium 3.4 L
Chloride 104
Carbon Dioxide 30
BUN 19
Creatinine 0.6 L
Glucose 114 H
Calcium 8.5
Total Bilirubin 1.1
AST 38
ALT 24
Alkaline Phosphatase 59
Vital Signs:
Vital Signs
Temp Pulse Resp BP Pulse Ox
97.8 F 65 18 136/86 97
09/20/23 07:00 09/20/23 07:00 09/20/23 07:00 09/20/23 07:00 09/20/23 07:00
I&O
09/19/23 09/20/23 09/21/23
06:59 06:59 06:59
Intake Total 2187
Output Total 150 / 150
Balance 2037
[2023-09-20] MEDS: SOLU-CORTEF 10 MG IV ×2 (09:33→21:02)
[2023-09-20] MEDS: KCL 270 MEQ IV (10:24)
--- NOTE | 2023-09-20 11:21 | W.PN.GS2 ---
Today's Communication / Plan
-
Rpt CT
Assessment / Plan
-
Patient is a 73 yo M p/w ileus vs. partial SBO secondary to infectious or inflammatory in origin vs. dysmotility and medication induced
Clinically patient appears well with a soft and benign abdomen. CT does not demonstrate any evidence of pneumatosis or free air, low likelihood of bowel ischemia. There is a thickned loop of jejunum not c/w vascular pattern. Abdominal x-ray
demonstrates significantly dilated loops of small bowel filled with some air into the colon. His persistent leukocytosis would further support that he is not like completely resolved his underlying pathology. Of note, patient's and son were
very clear upfront that if any surgical intervention is deemed necessary then they would request transfer to [facility]. and son were updated, all questions answered.
Leukocytosis may be related to steroid use rather than acute infection, he is afebrile.
Plan:
Rpt CT with IV and PO contrast
IVF/NPO
DVT ppx
Would consider monitoring off abx
D/w son by phone, all ?s answered.
Subjective Data
-
Date of Service: September 20, 2023
Pt with dementia, history from pt is limited; he denies pain presently, denies nausea; per nursing he had emesis episodes overnight x2; no recorded BMs
Objective Data
-
Intake and Output
09/19/23 09/20/23 09/21/23
06:59 06:59 06:59
Intake Total 60 / 60 2187
Output Total 150 / 150
Balance 60 / 60 2037
Intake:
Oral fluids 60 / 60 220 / 220
IV fluids (Total) 1817
IV piggybacks 150 / 150
Output:
Urine, Voided 150 / 150
Other:
Number of approximated MODERATE 2
amounts of urine
How many times incontinent 1 2
MODERATE amount urine
How many times incontinent 1
SATURATED amount urine
Vital Signs
Temp Pulse Resp BP Pulse Ox
98.6 F 72 18 133/84 96
09/20/23 11:00 09/20/23 11:00 09/20/23 11:00 09/20/23 11:00 09/20/23 11:00
Lab Results
09/20/23 06:07
09/20/23 06:07
Calcium 8.5 mg/dl (8.4-10.2) 09/20/23 06:07
Magnesium 2.0 mg/dl (1.6-2.3) 09/18/23 12:40
Total Bilirubin 1.1 mg/dl (0.2-1.3) 09/20/23 06:07
AST 38 U/L (17-59) 09/20/23 06:07
ALT 24 U/L (0-50) 09/20/23 06:07
Alkaline Phosphatase 59 U/L (38-126) 09/20/23 06:07
Total Protein 6.1 g/dl (6.3-8.2) L D 09/20/23 06:07
Albumin 3.4 g/dl (3.5-5.0) L 09/20/23 06:07
Physical Exam
-
Gen: NAD
Abd: soft, nt, nd
[2023-09-20] MEDS: OMNIPAQUE 50 ML PO (12:29)
--- NOTE | 2023-09-20 13:10 | W.PN.GI.CBS2 ---
Addendum entered and electronically signed by Molly Rosario MD 09/20/23 18:16:
CT scan A/P- Interval worsened appearance of small bowel obstruction with multiple dilated proximal and mid small bowel loops with likely transition point within the right lower quadrant. Significantly distended stomach. Interval improvement of
thickened small bowel loops within the right lower quadrant at the site of transition with mild mesenteric edema. Small amount of pelvic ascites, improved compared to the prior CT.
Given possible SBO-pt being transfered to of as per family's request
-Continue IV Zosyn
-Continue supportive management with IV fluids.
-Bowel rest and keep NPO
-Monitor daily CBC, BMP
Await transfer to [place]
Original Note:
Documented by User: Shonna Park MD, Resident 09/20/23 13:21
Today's Communication / Plan
-
abd CT w oral contrast
Assessment / Plan
-
Patient is alert and oriented to self. Remains afebrile. Abdomen is soft. No TTP. Continues to be NPO. Per nursing staff, pt had one episode of bilious vomiting in the morning. Was given dulcolax 8 am but has not had any bowel movements till noon.
WBC count stable. Abd x-ray yesterday and today suggests SBO. CT w oral contrast to be done later in the day.
# Jejunitis
Ddx includes infection vs inflammation and less likely ischemia.
-Continue IV Zosyn
-Continue supportive management with IV fluids, antiemetics as needed, pain management
-Bowel rest and keep NPO
-Monitor daily CBC, BMP
-May consider MR enterography as outpatient
Subjective
Subjective
Date of Service: September 20, 2023
Patient is alert but pleasantly confused. Denies abdominal pain.
Objective
Data Reviewed
Laboratory Data:
Laboratory Results
09/20/23 06:07
09/20/23 06:07
Laboratory Results
Magnesium 2.0 mg/dl (1.6-2.3) 09/18/23 12:40
Total Bilirubin 1.1 mg/dl (0.2-1.3) 09/20/23 06:07
AST 38 U/L (17-59) 09/20/23 06:07
ALT 24 U/L (0-50) 09/20/23 06:07
Alkaline Phosphatase 59 U/L (38-126) 09/20/23 06:07
Lipase 42 U/L (23-300) 09/17/23 13:57
Vital Signs and I&O:
Vital Signs
Temp Pulse Resp BP Pulse Ox
98.6 F 72 18 133/84 96
09/20/23 11:00 09/20/23 11:00 09/20/23 11:00 09/20/23 11:00 09/20/23 11:00
I&O
09/19/23 09/20/23 09/21/23
06:59 06:59 06:59
Intake Total 60 / 60 2188 / 2188
Output Total 150 / 150
Balance 60 / 60 2037 / 2037

Documented by User: Molly Rosario MD 09/20/23 18:15
Today's Communication / Plan
-
# Jejunitis
CT scan A/P- Interval worsened appearance of small bowel obstruction with multiple dilated proximal and mid small bowel loops with likely transition point within the right lower quadrant. Significantly distended stomach. Interval improvement of
thickened small bowel loops within the right lower quadrant at the site of transition with mild mesenteric edema. Small amount of pelvic ascites, improved compared to the prior CT.
Given possible SBO-pt being transfered to [facility] as per family's request
-Continue IV Zosyn
-Continue supportive management with IV fluids.
-Bowel rest and keep NPO
-Monitor daily CBC, BMP
Await transfer to [place]
Assessment / Plan
-
Patient is alert and oriented to self. Remains afebrile. Abdomen is soft. No TTP. Continues to be NPO. Per nursing staff, pt had one episode of bilious vomiting in the morning. Was given dulcolax 8 am but has not had any bowel movements till noon.
WBC count stable. Abd x-ray yesterday and today suggests SBO. CT w oral contrast to be done later in the day.
# Jejunitis
CT scan A/P- Interval worsened appearance of small bowel obstruction with multiple dilated proximal and mid small bowel loops with likely transition point within the right lower quadrant. Significantly distended stomach. Interval improvement of
thickened small bowel loops within the right lower quadrant at the site of transition with mild mesenteric edema. Small amount of pelvic ascites, improved compared to the prior CT.
Given possible SBO-pt being transfered to [facility] as per family's request
-Continue IV Zosyn
-Continue supportive management with IV fluids.
-Bowel rest and keep NPO
-Monitor daily CBC, BMP
Await transfer to [place]
Physical Exam
Physical Exam
GI: Soft and Other (mildly distended, no significant discomfort)
--- NOTE | 2023-09-20 14:57 | PN.CDI ---
Addendum entered and electronically signed by Patrick Dill MD 09/20/23 16:56:
Baseline Dementia with agitation
Original Note:
CDI
- -
CDI:
Physician Documentation Request
Admit Date: 09/18/23 10:13
Dear Doctor Aniyah,
Please review the following and provide your response in the progress notes.
Clinical Indicators:
- 09/19 PN 'Dementia, at baseline'
- 09/18 RN note 'B/L mitts discontinued at 1225'
- 09/18 RN note 'Pt increasing agitated, ripped out peripheral IV, attempting to get oob'
- 'Pt continues to be aggressive, states 'I am going to whop you with this!'
- 'BL wrist restraints ordered. Med sitter in place'
Please clarify which, if any of the following, is the most likely etiology of the confusion/altered mental status.
Encephalopathy - indicate type, such as metabolic, toxic, septic, alcoholic, anoxic, hypertensive etc. due to a specific condition such as UTI, CVA, hyponatremia etc.
Baseline Dementia with agitation
Baseline dementia with behavioral disturbances
Acute or subacute confusional state due to (specify known or suspected etiology)
Other
Use of terms such as suspected, likely, concern for, or probable (associated with a specific diagnosis that is being evaluated, monitored, or treated as if it exists) are acceptable and can be coded in the inpatient setting, when documented at the
time of discharge.
Thank you,
Danika Pabon RN
CDI Specialist
Please use your independent medical judgment in providing your response.
--- NOTE | 2023-09-20 15:32 | PTCARENOTE ---
Pt only able to tolerate 90% of 1st of 2 cups of oral contrast. Pt with an episode of emesis. PRN Zofran administered. Dr. Lam informed of inability to tolerate full dose of contrast. Instructed to continue CT with contrast able to administer. Pt
sent to CT. CT called to inform that patient had episode of large green emesis. Pt returned to room.
--- NOTE | 2023-09-20 15:53 | W.PN.UPDATE ---
Update Note
Progress Note Update
Rpt CT reviewed. Formal read pending. Pt was unable to tolerate oral contrast. There is increased length of dilated small bowel, and also more intraluminal air distally. This is suggestive of a persistent high grade partial SBO. This was d/w son at
[phone]. High likelihood this will need operative intervention, family wishes for this to take place at [facility] given his hx of pulmonary fibrosis. D/w Hospitalist. Pt son has relationships with [facility] staff and will also try to help facilitate
transfer.
--- NOTE | 2023-09-20 16:57 | W.DCSUMMARY ---
Discharge Summary
Discharge Data
Date of Admission: 09/18/23
Date of Discharge: 09/22/23
-
Pending Results: No
Hospital Course
73 years old male who presented to the emergency department with vomiting and abdominal pain. Patient was unable to take orally due to the pain. His family provided history due to the patient's underlying dementia. He was poor historian and had
difficulty expressing his symptoms. No history of fever, no chest pain or shortness of breath. Patient had history of chronic hypoxic respiratory failure due to underlying pulmonary fibrosis and was on chronic prednisone. He had leukocytosis on
admission. Scan of the abdomen and pelvis showed mild small bowel dilatation consistent with small bowel obstruction and mild small bowel wall thickening of distal jejunum. Patient was diagnosed with acute jejunitis and small bowel obstruction,
likely infectious and less likely ischemia. Patient received intravenous fluid, intravenous antibiotic and bowel rest. Patient was evaluated by surgery and gastroenterology doctors. Patient was given intravenous steroid while n.p.o. status
because of chronic prednisone therapy. Patient needed to have restraints to avoid removing tubes and safety measure. Opioid medications were avoided to avoid side effects. Subsequent abdominal radiographs including scan of the abdomen and pelvis
showed persistent small bowel obstruction. Surgery recommended surgical intervention for high-grade persistent small bowel obstruction. Family wanted to pursue further management and treatments at [facility]. Patient
had doctors associated with [facility] and his son Dr Fredy Rodriges had colleagues, he was already communicating with them regarding his father's condition. Communication with on-call surgery at [facility] through transfer center was
initiated. Surgeon on-call at [facility] Dr. Cuellar accepted the patient but there was no beds. Surgery also recommended to place NG tube but due to lack of nausea, vomiting, abdominal pain and the fact that patient will need constant restraints and
after discussing this matter between surgery and the Dr Fredy Rodriges, decision was to keep the patient NPO and monitor closely. Our consultants continued to follow the patient and to provide assistance in case the family would decide to receive care
at [facility]. Patient started to have mild clinical improvement with regard to his bowel obstruction. No nausea, no abdominal distention noted, no tenderness on examination. Patient started to have bowel movements. Stool came back
negative for most of the microbial infection including C difficile. Repeat abdominal radiograph showed mild interval improvement in the dilatation of the stomach and small bowel loops. Clinically, patient did not have pain, did not required
antiemetic and did not have abdominal distention. The intention was to continue to monitor the patient until bed availability at [facility]. At the same time,there was a delay in bed availability at [facility]. Patient started to have worsening hypoxia with
agitation. He was moved to ICU setting due to high oxygen demand and respiratory distress, agitation. He was diagnosed with acute on chronic respiratory failure with hypoxia thought to be likely due to ILD exacerbation versus pneumonia, aspiration;
less likely acute decompensated heart failure (however proBNP was elevated- negative troponin). Procalcitonin was 2.32, CRP at 207.80. Patient received high-dose steroids, broad spectrum antibiotics. Cardiology, infectious disease client consultant in
addition to copy director/ senior vice president & general counsel doctors evaluated him. He had echocardiogram that showed left ventricular ejection fraction of 60 to 65%, enlarged large ventricle with mildly reduced systolic function, mild to moderate mitral regurgitation,
mild aortic regurgitation, moderate pulmonary hypertension with dilated aortic root 4.1 cm. Ultrasound of lower extremities did not show evidence of deep venous thrombosis.
During ICU evaluation of the patient, family continued their efforts to communicate with [facility] medicine surgery service to transfer the patient to surgical ICU at [facility]. Surgical service at [facility] was updated through
transfer center. Accepting surgeon Dr. Cuellar was updated with new events including respiratory decompensation and possibility of needing ventilatory support. Patient remained in ICU and he started to have stability of his oxygen requirement and
vital signs. He did not have hypotension and did not need pressure support. Blood culture was sent and did not show infection. COVID test was negative. Patient received PICC line in case total parenteral nutrition was to be started. Chest
radiography showed diffuse bilateral interstitial and airspace opacities. Repeat chest radiography later in the day showed minimal improvement in the airspace opacities of both lungs. Patient was transferred to [facility] to continue treatment at the facility.
Discharge Plan
-
Patient Disposition: Acute Care Hospital
Discharge Orders:
Discharge Patient (As Directed); Ordered 09/22/23
Ordered By: Patrick Dill
Discharge Date and Time
Discharge Date/Time: 09/22/23 19:15
Print Language: LATVIAN
--- NOTE | 2023-09-20 17:22 | CM ---
Reviewed chart spoke with patient's to obtain information for assessment. Patient's stated that patient lives with her in a single home with 2 floors. She assists with ADLs, personal care and he can dress and bathe. She does the household
chores. He ambulates without device.
patient's denied any DME at home.
He has not had VN services or been to a SNF.
Patient has a prescription plan and uses, [facility] in [place] for all of his medications.
His PCP is, Bhavya Salazar.
Patient's stated that she would participate in providing more information regarding patient once patient has his surgery.
Received update from [facility] manager community outreach that patient is transferring to [facility].
Plan: Case management will continue to follow and assist with discharge planning. [facility].
[2023-09-20] MEDS: LOVENOX 40 MG SC (17:53)
[2023-09-21] VITALS (8 sets, daily range): BP systolic 98–131; BP diastolic 60–79; PULSE 99–101; O2SAT 93; BMI 23.8
[2023-09-21] MEDS: ZOSYN 50 IV ×4 (01:55→17:45)
[2023-09-21] MEDS: D5/0.9% SODIUM CHLORIDE 1000 IV ×2 (06:39→17:50)
[2023-09-21] MEDS: D5/0.9% SODIUM CHLORIDE IV (07:00)
--- NOTE | 2023-09-21 08:07 | W.PN.HOSP.TC ---
Today's Communication/Plan
-
Await Transfer to [facility]
c/w Bowel rest, IVF, IV Zosyn. IV PPI.
Assessment / Plan
Assessment / Plan
Physical Exam
General: Comfortable in bed.
HEENT: Normocephalic, Anicteric and Moist mucous membranes
Respiratory: Clear
Cardiac: S1/S2 and Regular Rhythm
GI: Soft, No tenderness in the abdomen upon deep palpation
Musculoskeletal: No Clubbing, No Cyanosis and No Edema
Skin: Warm and Dry
Neuro: Awake and Other (sleepy, underlying dementia)
Psych: Calm
# SOB/ ileus with acute Jejunitis, likely infectious etiology though possible inflammatory versus infectious, less likely ischemic, no evidence for diverticulitis
He denies pain or tenderness on exam. Abdomen is not distended on exam
Receiving IVF and IV Abx with bowel rest
Repeat CT showed interval worsened appearance of small bowel obstruction with multiple dilated proximal and mid small bowel loops with likely transition point within the right lower quadrant. Family wanted surgicla intervention at [facility]. This was d/w
son at [phone]. Await Transfer to [facility].
Appreciate GI, surgery input.
# Hypokalemia, replaced.
# leukocytosis, could be also reactive to steroid.
#Pulmonary fibrosis, on chronic prednisone 10 mg daily, stable at this time
- Given IV steroids while NPO. , will wean down to his usual dose when oral is allowed. No hypotension.
-cont home O2 2 L NC and pulse oximetry monitoring
#Incidental findings on CT
-infrarenal abdominal aortic aneurysm measuring 3.3 cm.
-Left common iliac artery aneurysm measuring 3.7 cm with a large amount of noncalcified thrombus information along the posterior wall.
-Right common iliac artery aneurysm measuring 2.4 cm.
#Dementia, at baseline
reported agitation with morphine, we stopped it. Use Tylenol if needed
Restraints were placed as needed after he pulled IV access. . was updated.
C/W Aricept, Zoloft [id number].
DVT proph-Lovenox
Full Code
Total time spent to see the patient, examine the patient on the floor, review data and lab results, discuss treatment plan with patient, , son, nursing staff around 55 minutes.
Anticipated Discharge: Today
Subjective/Interval History
-
Date of Service: September 21, 2023
Needed restraints last night
Await transfer to [facility]
Objective Data
-
Vital Signs:
Vital Signs
Temp Pulse Resp BP Pulse Ox
97.8 F 74 17 131/79 95
09/21/23 07:00 09/21/23 07:00 09/21/23 07:00 09/21/23 07:00 09/21/23 07:00
I&O
09/20/23 09/21/23 09/22/23
06:59 06:59 06:59
Intake Total 8 / 2187 1550 / 1550
Output Total 150 / 150
Balance 2037 1550 / 1550
[2023-09-21] MEDS: PROTONIX IV 40 MG IV (08:48)
[2023-09-21] MEDS: ARICEPT 5 MG PO (08:51)
[2023-09-21] MEDS: LOW STRENGTH ASPIRIN 81 MG PO (08:51)
[2023-09-21] MEDS: ZOLOFT 100 MG PO (08:52)
--- NOTE | 2023-09-21 09:08 | W.PN.GS2 ---
Addendum entered and electronically signed by Fredy Rosaels MD 09/21/23 10:50:
stopped bowel regiment medications as pt has probable mechanical SBO
Original Note:
Today's Communication / Plan
-
`
Assessment / Plan
-
Assessment: 73 y/o male with probable SBO with transition point in RLQ
follow up CT imaging 09/19 with persistent signs of SBO and clinically remains obstructed
Dr. Lam d/w pt son yesterday evening and family has requested transfer to [facility] for further care; no clinical signs of immediate bowel threat or compromise to require emergent/urgent surgery. surgically stable for transfer.
Plan: pt for transfer to [facility]
available for assistance with care while remains in
if continued N/V would consider NGT placement
Subjective Data
-
Date of Service: September 21, 2023
pt seen and examined
confused, unable to provide accurate hx
denies abdominal pain on questioning
Objective Data
-
Intake and Output
09/20/23 09/21/23 09/22/23
06:59 06:59 06:59
Intake Total 2188 / 2188 1550 / 1550
Output Total 150 / 150
Balance 2037 1550 / 1550
Intake:
Oral fluids 220 / 220 0 / 0
IV fluids (Total) 1818 / 1818 1500 / 1500
IV piggybacks 150 / 150 50 / 50
Output:
Urine, Voided 150 / 150
Other:
How many times incontinent 2 3
MODERATE amount urine
How many times incontinent 1 3
SATURATED amount urine
Number of immeasurable emeses? 1
Vital Signs
Temp Pulse Resp BP Pulse Ox
97.8 F 74 17 131/79 95
09/21/23 07:00 09/21/23 07:00 09/21/23 07:00 09/21/23 07:00 09/21/23 07:00
Lab Results
09/20/23 06:07
09/20/23 06:07
Calcium 8.5 mg/dl (8.4-10.2) 09/20/23 06:07
Magnesium 2.0 mg/dl (1.6-2.3) 09/18/23 12:40
Total Bilirubin 1.1 mg/dl (0.2-1.3) 09/20/23 06:07
AST 38 U/L (17-59) 09/20/23 06:07
ALT 24 U/L (0-50) 09/20/23 06:07
Alkaline Phosphatase 59 U/L (38-126) 09/20/23 06:07
Total Protein 6.1 g/dl (6.3-8.2) L D 09/20/23 06:07
Albumin 3.4 g/dl (3.5-5.0) L 09/20/23 06:07
Physical Exam
-
NAD oriented to self
ABD: softly distended, nontender, no R/R/G
--- NOTE | 2023-09-21 09:20 | W.PN.GI.CBS2 ---
Addendum entered and electronically signed by Molly Rosario MD 09/21/23 15:15:
I saw and examined the patient.
The resident's note was reviewed and I agree with the note.
Comment: Pt agitated overnight with some vomiting. Had BM this am-loose stool
Abdomen-mildly distended but no tenderness appreciated.
Given partial small bowel obstruction, await transfer to [place].
NPO, Monitor electrolytes and replete .
-If vomiting-consider NGT for decompression
No GI interventions planned, will sign off.Please call back as needed.
Original Note:
Today's Communication / Plan
-
GI will sign off, if any questions please call the office
Assessment / Plan
-
Patient is alert and oriented to self. Remains afebrile. Abdomen is soft. No TTP. Continues to be NPO. Per nursing staff, pt had one episode of bilious vomiting in the morning. Was given dulcolax 8 am but has not had any bowel movements till noon.
WBC count stable. Abd x-ray yesterday and today suggests SBO. CT w oral contrast to be done later in the day.
# Jejunitis
CT scan A/P- Interval worsened appearance of small bowel obstruction with multiple dilated proximal and mid small bowel loops with likely transition point within the right lower quadrant. Significantly distended stomach. Interval improvement of
thickened small bowel loops within the right lower quadrant at the site of transition with mild mesenteric edema. Small amount of pelvic ascites, improved compared to the prior CT.
- pt being transferred to [facility] as per family's request
- if pt has any N/V consider NGT placement
- GI will sign off, if any questions please call the office
Subjective
Subjective
Date of Service: September 21, 2023
Objective
Data Reviewed
Laboratory Data:
Laboratory Results
09/20/23 06:07
09/20/23 06:07
Laboratory Results
Magnesium 2.0 mg/dl (1.6-2.3) 09/18/23 12:40
Total Bilirubin 1.1 mg/dl (0.2-1.3) 09/20/23 06:07
AST 38 U/L (17-59) 09/20/23 06:07
ALT 24 U/L (0-50) 09/20/23 06:07
Alkaline Phosphatase 59 U/L (38-126) 09/20/23 06:07
Lipase 42 U/L (23-300) 09/17/23 13:57
Vital Signs and I&O:
Vital Signs
Temp Pulse Resp BP Pulse Ox
97.8 F 74 17 131/79 95
09/21/23 07:00 09/21/23 07:00 09/21/23 07:00 09/21/23 07:00 09/21/23 07:00
I&O
09/20/23 09/21/23 09/22/23
06:59 06:59 06:59
Intake Total 2187 / 218 1550 / 1550
Output Total 150 / 150
Balance 2037 1550 / 1550
[2023-09-21] MEDS: SOLU-CORTEF 10 MG IV ×2 (10:26→23:00)
--- NOTE | 2023-09-21 14:27 | PTCARENOTE ---
patient denies pain and appears comfortable. took oral PO medications this am as ordered without difficulty, abdomen softly distended, hyper bsx4 quads, nontender, round, no n/v, 4L NC maintained, vss, b/l wrist restraints maintained, awaiting
transfer to [facility], will continue to monitor.
--- NOTE | 2023-09-21 14:30 | PTCARENOTE ---
patient incontinent of brown liquid stool, will continue to monitor.
--- NOTE | 2023-09-21 14:58 | PTCARENOTE ---
Meenakshi Brown nurse from [facility] transfer center called wanting update of patient status. She was updated of patient current status per her request.
[2023-09-21] MEDS: LOVENOX 40 MG SC (17:45)
--- NOTE | 2023-09-21 17:57 | PTCARENOTE ---
at 1515, [employer] informed me that patient's temp axillary was 100.7. temp rechecked at 1530 and was 98.5. patient appears comfortable, will continue to monitor.
--- NOTE | 2023-09-21 18:29 | W.PN.UPDATE ---
Update Note
Progress Note Update
Called by and spoke with her son regarding starting TPN for Mr. Rodriges. His last meal was Monday so we have a limited time, but if he still has no significant return of bowel function we cannot feed him enterally will plan for placement of a
PICC and initiation of TPN tomorrow 09/22/2023. Son agreeable to this plan.
[2023-09-22] VITALS (38 sets, daily range): BP systolic 73–150; BP diastolic 46–106; BMI 23.7
[2023-09-22] MEDS: ZOSYN 50 IV ×3 (00:31→12:37)
--- NOTE | 2023-09-22 02:29 | RESPNOTE ---
called to bedside for pt desaturating and SOB. Pt has hx of pulmonary fibrosis. Pt started on 15L ventimask.
[2023-09-22 02:57] LABS: Glucose - Point of Care 113 mg/dl (70-99)
[2023-09-22 03:12] LABS: B.E. 7.6 mmol/L; O2 Saturation % 93.1 % (94-98); PCO2 43 mmHg (35-48); pH 7.48 (7.35-7.45)
[2023-09-22 03:18] LABS: PO2 59 mmHg (83-108)
[2023-09-22 03:27] LABS: % Basophils 0.4 % (0-2); % Eosinophils 0.9 % (0-6); % Immature Granulocytes 0.4 % (0-0.5); % Neutrophils 87.3 % (42.2-75.2); Absolute Basophils 0.1 10^3/uL (0-0.2); Absolute Eosinophils 0.1 10^3/uL (0-0.7); Absolute Immature Granulocytes 0.1 10^3/uL (0-0.05); Absolute Lymphocytes 0.7 10^3/uL (1.2-3.4); Absolute Monocytes 0.8 10^3/uL (0.1-0.6); Absolute Neutrophils 12.2 10^3/uL (1.4-6.5); Hematocrit 40.6 % (39.0-52.0); Hemoglobin 13.8 g/dL (13.0-18.0); Mean Corpuscular Hgb 29.3 pg (27.0-31.0); Mean Corpuscular Volume 86.2 fL (80.0-94.0); Mean Platelet Volume 10.5 fL (7.4-10.4); Nucleated Red Blood Cells % 0 % (-); Platelet Count 137 10^3/uL (130-400); Red Blood Cell Count 4.71 10^6/uL (4.70-6.10); Red Cell Dist. Width 15.6 % (11.5-14.5); White Blood Cell Count 13.9 10^3/uL (4.8-10.8)
--- NOTE | 2023-09-22 03:32 | W.PN.UPDATE ---
Update Note
Progress Note Update
Rapid response called due to patient desaturating into 70s on NC oxygen. Low grade rectal temp noted. History of intractable vomiting recently so suspicious for aspiration PNA along with his pulmonary fibrosis and restriction of chest cavity by
diaphragm being pushed upwards by gas filled loops of bowel. Will add NG tube for decompression, added Vancomycin IV (already on IV Zosyn). Pulmonary consult placed. Bladder scan for PVR. With dementia history he may need restraints to keep NG tube
in place.
[2023-09-22 03:39] LABS: Lactic Acid 1.2 mmol/L (0.7-2.0)
[2023-09-22] MEDS: D5/0.9% SODIUM CHLORIDE 1000 IV (03:45)
[2023-09-22 03:57] LABS: Blood Urea Nitrogen 14 mg/dl (9-20); Calcium 8.3 mg/dl (8.4-10.2); Carbon Dioxide 32 mmol/L (22-30); Chloride 105 mmol/L (98-107); Estimated Creatinine Clearance 113 ml/min; Glucose 109 mg/dl (70-99); Potassium 2.7 mmol/L (3.5-5.1); Sodium 142 mmol/L (135-145); eGFR > 60.00
--- NOTE | 2023-09-22 04:00 | PTCARENOTE ---
Pt was tachypneic and desaturating into the 70's on 2L. O2 turned up to 6L with saturating of 91%. Respiratory made aware and in to see pt. Pt then placed on 15L ventimask. SQUARE CUTTER notified and ordered a STAT ABG. Pt again desaturating to 88%. Rapid
Response was called. Labs drawn, pt placed on 15L nonrebreather and transfered to IMU. Report given to Alpa.
[2023-09-22] MEDS: VANCOCIN 540 MG IV (04:23)
--- NOTE | 2023-09-22 04:44 | PTCARENOTE ---
Addendum entered by Alpa Gibson RN 09/22/23 05:19:
Tube place placement verified by night CUT OUT AND MARKING MACHINE OPERATOR Ayanna.
Original Note:
Pt transferred to IMU on NRB 15L SPO2 95%. NG placed INT low suction. Xray to verify placement. Pt K 2.7, Night CUT OUT AND MARKING MACHINE OPERATOR made aware order placed.
[2023-09-22] MEDS: KCL 270 MEQ IV ×2 (04:54→09:12)
[2023-09-22] MEDS: KCL ELIXIR 40 MEQ PO (05:06)
[2023-09-22] MEDS: ATIVAN 0.25 MG IV (06:31)
--- NOTE | 2023-09-22 06:42 | W.PN.HOSP.TC ---
Addendum entered and electronically signed by Patrick Dill MD 09/22/23 07:34:
Addendum
Exam this morning
Physical Exam
General: seems in respiratory distress and not comfortable
HEENT: NG is in
Respiratory: Bilateral Crackles heard, no wheezes
Cardiac: S1/S2 tachycardia . Elevated JVD but using accessory neck muscles
GI: Soft, No tenderness in the abdomen upon deep palpation
Musculoskeletal: No Clubbing, No Cyanosis and No Edema
Skin: Warm and Dry
Neuro: Awake, moving his limbs. Followed simple commands
Psych: restless
Original Note:
Today's Communication/Plan
-
Worsening hypoxia, Notes in details, work up for Pneumonia, ? pulmonary edema, or ILD flare up
Multiple bowel movements over night, soft abdomen. NG was placed for protection, f/w surgery
C/W IV Abx, f/w ID doctor
IV steroid
O2 supply. Pt is full code
Echo of heart
Pro-BNP and troponin, EKG
Urine test to rule out UTI
f/w pulmonary doctor/ cardiology recommendations
Will follow
Updated son and will keep following
Will update [facility] center
Assessment / Plan
Assessment / Plan
Physical Exam
General: Comfortable in bed.
HEENT: Normocephalic, Anicteric and Moist mucous membranes
Respiratory: Clear
Cardiac: S1/S2 and Regular Rhythm
GI: Soft, No tenderness in the abdomen upon deep palpation
Musculoskeletal: No Clubbing, No Cyanosis and No Edema
Skin: Warm and Dry
Neuro: Awake and Other (sleepy, underlying dementia)
Psych: Calm
# Acute on chronic hypoxic respiratory failure
Known pulmonary fibrosis on home oxygen. Patient is on chronic prednisone at 10 mg QD, was given IV hydrocortisone to replace the oral dose.
Patient started to have worsening hypoxia over night. Possible aspiration ( less likely - improved SBO by x ray, soft abdomen, no vomiting-cant not rule out oral secretions aspiration) Vs underlying ILD flare up or superimposed -evolving pneumonia
No vomiting in last 24 hours
Chest x ray showing Bilateral opacities and densities
WBC is elevated than yesterday. Had fever at 100.7 over night. Normal Lactic acid.
Transfer to ICU for oxygen support
Check urine for UTI
Blood culture is ordered
IV Abx, broad spectrum
IV steroid , increase the dose
Consult pulmonary/ICU doctor, ID doctor. Appreciate help
# Sinus tachycardia, reactive
Will order echo
Check Pro-BNP. Check troponin
Consult cardiology
# Hypokalemia
Replace IV aggressively, we might need to use Lasix as patient was receiving IVF while NPO
# SOB/ ileus with acute Jejunitis, likely infectious etiology though possible inflammatory versus infectious, less likely ischemic, no evidence for diverticulitis
X ray yesterday 09/20 showed improvement in dilatation. Patient had multiple bowel movements in last 24 hours. Possible SBO is resolving, will f/w surgery
Abdomen remains soft, not distended on exam
No report of abdominal pain but patient is poor historian
Continue NPO
IV PPI for GI prophylaxis
Plan for pic line and TPN
Appreciate GI, surgery input.
#Incidental findings on CT
-infrarenal abdominal aortic aneurysm measuring 3.3 cm.
-Left common iliac artery aneurysm measuring 3.7 cm with a large amount of noncalcified thrombus information along the posterior wall.
-Right common iliac artery aneurysm measuring 2.4 cm.
#Dementia, at baseline
reported agitation with morphine, we stopped it. Use Tylenol if needed
Restraints were placed as needed after he pulled IV access.
At home, Patient is on oral Aricept, Zoloft [id number].
DVT proph-Lovenox
Full Code
Total time spent to see the patient, examine the patient on the floor, review data and lab results, discuss treatment plan with patient, son, nursing staff around 75 minutes.
Anticipated Discharge: > 48 hours
Subjective/Interval History
-
Date of Service: September 22, 2023
Events over night reviewed
discuss with night doctor
Objective Data
-
Labs:
Laboratory Results
09/22/23 09/22/23
03:03 03:14
WBC 13.9 H
Hgb 13.8
Hct 40.6
Plt Count 137
HCO3 32.0 H
Sodium 142
Potassium 2.7 L*
Chloride 105
Carbon Dioxide 32 H
BUN 14
Creatinine 0.6 L
Glucose 109 H
Calcium 8.3 L
Vital Signs:
Vital Signs
Temp Pulse Resp BP Pulse Ox
98.4 F 115 30 144/82 83
09/22/23 03:35 09/22/23 06:07 09/22/23 06:07 09/22/23 06:07 09/22/23 06:07
I&O
09/20/23 09/21/23 09/22/23
06:59 06:59 06:59
Intake Total 8 / 2188 1550 / 1550 1425 / 1425
Output Total 150 / 150
Balance 2037 1550 / 1550 1425 / 1425
[2023-09-22 07:05] LABS: Glucose - Point of Care 128 mg/dl (70-99)
--- NOTE | 2023-09-22 07:05 | RR ---
Addendum entered by Alpa Gibson RN 09/22/23 07:44:
Pt RR 40+, tachycardic into the 150-160. Hypertension. Transferred to ICU
Original Note:
A Rapid Response was called on this patient, please see Rapid Response form.
[2023-09-22] MEDS: DUONEB 3 ML INH ×3 (07:14→15:21)
[2023-09-22] MEDS: XOPENEX 1.25 MG INHALANT SOLUTION INH (07:14)
--- NOTE | 2023-09-22 08:05 | CON.INTV ---
Consultation
Consultation Request
Date/Time Consultation Requested: 09/22/2023704
Date/Time Consultation Performed: 09/22/2023733
Requesting Provider: Dr. Dill
Performing Provider: Dr. New
Reason for Consultation: Worsening hypoxia
Medical History
-
Chief Complaint: Abdominal pain/nausea/vomiting
History of Present Illness:
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 Initially
in the ER he was hemodynamically stable with BP 116/85, heart rate 96, RR: 16 breaths/min, afebrile to 98.3 �F and saturating 94% on room air. Initial labs showed leukocytosis to 14.7, Hb 17.6, initial serum bicarbonate 32, glucose 133, with CT
abdomen/pelvis with IV contrast showing small bowel dilatation with SB wall thickening in the distal does not on suspected to be jejunitis with possibly developing obstruction +/- ileus, with mild to moderate hiatal hernia, moderate diverticulosis,
mild ascites, pulmonary fibrosis at the bases and a large left common iliac artery aneurysm with associated plaque causing 50% luminal narrowing. He was given hydrocortisone 25 mg, Toradol, morphine, Zosyn, Zofran and NS 0.9% x 2 L and then
admitted to the hospitalist service. GI was consulted, he was started on clear liquid diet. On 09/18 his AXR was consistent with SBO, and general surgery was consulted. Patient had a repeat CT A/P with IV/p.o. contrast showing worsening SBO with
multiple dilated proximal and mid small bowel loops with significant distention of his stomach. On evening of 09/20, patient's oxygen requirements worsened and he is now on high flow nasal cannula. CXR shows extensive bilateral interstitial/airspace
opacities concerning for multifocal pneumonia/pneumonitis. Critical care services consulted for additional management/recommendations.
Patient seen and evaluated morning. He is sleeping but easily arousable. , Jimenez, at bedside. Patient currently on high flow nasal cannula at 100% FiO2, saturating 95%, pulse rate 82, and BP 112/83.
Of note, patient previously saw us at the [facility] office in December [address] Bailey. At that time patient had insomnia with narcolepsy previously on Nuvigil. He was told to follow-up in 3 months, but this never happened. His son at the time
was in interventional commercial lending vice president at [employer], and he now works at [employer].
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
PSHx: Bilateral knee surgery
Past Medical History
Past Medical History: Other (Above as per HPI)
Past Surgical History: Other (Above as per HPI)
Social History
Tobacco: Smoker (Occasional cigar use)
Alcohol: Occasional (Socially)
Drug: None
Personal:
Living: With Family
Employment: Retired (Used to work for [employer])
Environmental Exposures: Part-time [employer]
Family History
Family History: Reviewed & Not Pertinent
Allergies / Home Medications
Allergies
Allergy/AdvReac Type Severity Reaction Status Date / Time
No Known Allergies Allergy Verified 09/17/23 13:36
Home Medications
�Medication �Instructions �Recorded �Confirmed �Last Taken �Type
aspirin 81 mg chewable tablet 81 mg PO DAILY Blood Clot 11/07/16 09/17/23 09/16/23 History
Prevention/Tx
cholecalciferol (vitamin D3) 25 25 mcg PO DAILY Supplement 09/17/23 09/17/23 Unknown History
mcg (1,000 unit) tablet
donepezil 5 mg tablet 5 mg PO DAILY Neurological 09/17/23 09/17/23 09/16/23 History
Condition
loperamide 2 mg capsule (Imodium 2 mg PO Q4HPRN PRN loose stool 09/17/23 09/17/23 Unknown History
A-D)
prednisone 10 mg tablet 10 mg PO DAILY Anti-Inflammatory 09/17/23 09/17/23 09/16/23 History
sertraline 100 mg tablet 100 mg PO Q48H Mental 09/17/23 09/17/23 09/16/23 History
Health/Anxiety
Review of Systems
-
Unable to Obtain full review of systems at this time due to: Acuity
Vitals / Labs / Diagnostic Testing
Vital Signs
Temp Pulse Resp BP Pulse Ox
98.4 F 119 35 150/106 93
09/22/23 03:35 09/22/23 07:15 09/22/23 07:15 09/22/23 06:51 09/22/23 07:16
Lab Data
09/22/23 03:14
Laboratory Results
09/22/23
03:03
pH 7.48 H
pCO2 43
pO2 59 L*
HCO3 32.0 H
O2 Delivery Level
Microbiology
09/19/23 12:12 Blood/Venous Blood Culture - Preliminary
No Growth in 48 hours- Final report to follow
09/20/23 12:26 Feces/Stool Salmonella/Shigella Culture - Preliminary
Culture in Progress
09/20/23 12:26 Feces/Stool Campylobacter Culture - Preliminary
Culture in Progress
09/20/23 12:26 Feces/Stool - Preliminary
Culture in Progress
09/20/23 12:26 Feces/Stool Shiga Toxin Test - Final
No E. coli Shiga Toxin 1 or 2 detected.
09/20/23 12:26 Feces/Stool C. difficile GDH Antigen & Toxins - Final
Negative for toxigenic C.difficile
Diagnostic Testing:
Physical Exam
-
HEENT: Normocephalic and Anicteric
Cardiovascular: S1/S2 and Peripheral Edema (Negative)
Respiratory: Wheeze (Negative), Rales (Bilateral (L >R)), Rhonchi (Bilateral) and Accessory Resp Muscle Use (Mild)
GI: Soft, Non Distended, Non Tender and Normal Bowel Sounds
Neurology: Tremors (negative) and Other (Lethargic but arousable to voice)
Skin: Warm and Dry
General: Chills (Negative) and Sweats (Negative)
Assessment
-
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
hours. Initially in the ER he was hemodynamically stable with BP 116/85, heart rate 96, RR: 16 breaths/min, afebrile to 98.3 �F and saturating 94% on room air. Initial labs showed leukocytosis to 14.7, Hb 17.6, initial serum bicarbonate 32,
glucose 133, with CT abdomen/pelvis with IV contrast showing small bowel dilatation with SB wall thickening in the distal does not on suspected to be jejunitis with possibly developing obstruction +/- ileus, with mild to moderate hiatal hernia,
moderate diverticulosis, mild ascites, pulmonary fibrosis at the bases and a large left common iliac artery aneurysm with associated plaque causing 50% luminal narrowing. He was given hydrocortisone 25 mg, Toradol, morphine, Zosyn, Zofran and NS
0.9% x 2 L and then admitted to the hospitalist service. GI was consulted, he was started on clear liquid diet. On 09/18 his AXR was consistent with SBO, and general surgery was consulted. Patient had a repeat CT A/P with IV/p.o. contrast showing
worsening SBO with multiple dilated proximal and mid small bowel loops with significant distention of his stomach. On evening of 09/20, patient's oxygen requirements worsened and he is now on high flow nasal cannula. CXR shows extensive bilateral
interstitial/airspace opacities concerning for multifocal pneumonia/pneumonitis. Critical care services consulted for additional management/recommendations.
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
Impression:
#Acute respiratory failure with hypoxia likely due to ILD exacerbation versus pneumonia; less likely acute decompensated heart failure (however proBNP is elevated)
#Hypotension - appears medication induced from Ativan
#Abdominal pain due to SBO
#Leukocytosis
#Hypokalemia
#Metabolic alkalosis
#Elevated proBNP (3720 on 09/22/2023), unable to rule out acute decompensated heart failure
#Dementia
Plan:
- Continue high flow nasal cannula with titration of SpO2 to keep >90-94%
- Recommend starting high-dose steroids given concern for ILD exacerbation - will change solumedrol 60mgm IV q12hr to 40mg IV q6hr
- Check CRP and procalcitonin for trending purposes
- Continue broad spectrum ABx - currently on IV vanco + Zosyn
- Aspiration precautions, keep head of bed >30-45�
- Continue NGT to LIWS, keep strict NPO for now
- prn nebulized bronchodilators
- Check echo given elevated proBNP; cardiology consulted
- Unable to diurese now until hypokalemia corrected
- Replete electrolytes with K>4, Mg>2
- Hold off on any additional narcotics given hypotension; he may need vasopressors
- Maintain MAP>65
- Recommend using non-narcotic sedatives if he needs further Tx of agitation (i.e., Zyprexa vs Hydroxyzine)
- If pt becomes obtunded, check stat ABG
- Surgery + GI on board and recommendations appreciated
- Continue NG tube to LIWS
- Surgery recommend ex-lap with CHAITANYA' family not interested in obtaining surgery eval here or surgery at all for that matter unless pt needs surgery to survive; pt awaiting TRX to [facility] for further treatment
- Recommend GI and surgery consultations once pt arrives to [facility]
- Maintain euglycemia with goal BG 140-180
- DVT ppx: LMWH
Patient is awaiting transfer to [facility] for further care. Continue with correspondence between transfer center to facilitate efficient transfer to tertiary care center.
Continue ICU level of care until bed is available at [facility].
Critical care statement: A total of 40 minutes of critical care time was provided for this patient today. This includes management of unstable vital signs, evaluation of the patient at bedside, reviewing the patient's pertinent medical records
including radiographs, microbiology, laboratory evaluations, and discussion with primary team, consultants, pharmacy, nutrition, physical therapy, case management, charge nurse, critical care nursing, and respiratory therapy.
--- NOTE | 2023-09-22 08:07 | PTOTSP ---
Reviewed chart and events noted. Pt had rapid response this AM and transferred to ICU. Orders cancelled. Will need new orders for PT and OT when stable to resume therapy activity.
--- NOTE | 2023-09-22 08:11 | CON.CAR ---
Addendum entered and electronically signed by NATALI Ignacio 09/22/23 11:52:
Correction to my exam below:
Abdomen: No bowel sounds
Neurological: Lethargic
Addendum entered and electronically signed by Harsh Smith MD 09/22/23 11:51:
I saw and examined the patient.
The FARM EQUIPMENT TECHNICIAN's note was reviewed and I agree with the note.
Comment: 73 year old male (known to former public opinion survey taker, Dr. Gore, with last OV 08/2019, primary public opinion survey taker Dr. Gale at [place]), with symptomatic bradycardia (69% burden), mild to moderate nonobstructive coronary artery disease, mitral valve
prolapse with mild to moderate mitral regurgitation, hyperlipidemia, former tobacco use (cigars), pulmonary fibrosis with oxygen requirement, BPH, and Lewy body dementia presenting with abdominal pain on 09/17/2023. He has been treated for progressive
abdomen pain developing SBO. He has been awaiting to [place], last night had a rapid response after vomiting with developement of tachycardic and hypoxia. CXr showed extensive bilateral interstitial/airspace opacities concerning for multifocal
pneumonia/pneumonitis. His and son are at the bedside. We are asked to comment on tachycardia. He is not somnolent and initially calm becoming agitated with exam. he had a rrr no m/r/g, lungs cta anteriorly. CXR reviewed and agree with
above. ECG sinus tachycardia with LAFB. He is now in NSR. It is possible he has developed some acute CHF but he has significant hypokalemia so would first replete before considering diuresis. Also aspiration and ILD exacerbation likely at play. I
will update echo given prior bileaflet mitral valve prolapse and mitral regurgitation. This may have worsened. Finally, I believe his tachycardia is responsive and appropriate for the level of sickness. Family is hoping for a transfer to [facility] today. Meanwhile, we will continue with above plan.
Original Note:
Consultation
Consultation Request
Date/Time Consultation Requested: 09/22/2023 07:00
Date/Time Consultation Performed: 09/22/2023 08:00
Requesting Provider: Dr. Dill
Performing Provider: NATALI Madrid for Dr. Smith
Reason for Consultation: Tachycardia
Medical History
-
Chief Complaint: Abdominal pain
History of Present Illness:
Vish ('Higinio'Roxy Rodriges is a 73 year old male (known to former public opinion survey taker, Dr. Gore, with last OV 08/2019, primary public opinion survey taker Dr. Gale at [place]), with symptomatic bradycardia (69% burden), mild to moderate nonobstructive coronary artery
disease, mitral valve prolapse with mild to moderate mitral regurgitation, hyperlipidemia, former tobacco use (cigars), pulmonary fibrosis with oxygen requirement, BPH, and Lewy body dementia presenting with abdominal pain on 09/17/2023. He had
intractable vomiting and right lower quadrant pain that began the day prior. He had been unable to tolerate oral intake. He has been seen and evaluated by the GI service and general surgery. He was diagnosed with a bowel obstruction. He is
currently on antibiotics. He also is experiencing acute on chronic hypoxic respiratory failure. At home, he wears 3 L nasal cannula but not continuously per his . He is currently requiring high flow nasal cannula. Overnight, he had vomiting
and an NG tube was placed. Unfortunately this HPI is limited due to the patient's significant dementia. He was a rapid response overnight when he was experiencing hypoxia. He was also tachycardic and tachypneic. He is currently restrained. The
plan is for transfer to [place] per the family's request.
Past Medical History
Past Medical History: CAD (non-obstructive), Hypercholesterolemia, Psychiatric (Dementia) and Other (Pulmonary fibrosis [on continuous O2])
Social History
Tobacco: Former Smoker
Alcohol: None
Personal:
Living: With Family
Employment: Retired
Family History
Family History: Unable to Obtain
Allergies / Home Medications
Allergy/AdvReac Type Severity Reaction Status Date / Time
No Known Allergies Allergy Verified 09/17/23 13:36
�Medication �Instructions �Recorded �Confirmed �Type
aspirin 81 mg chewable tablet 81 mg PO DAILY Blood Clot 11/07/16 09/17/23 History
Prevention/Tx
cholecalciferol (vitamin D3) 25 25 mcg PO DAILY Supplement 09/17/23 09/17/23 History
mcg (1,000 unit) tablet
donepezil 5 mg tablet 5 mg PO DAILY Neurological 09/17/23 09/17/23 History
Condition
loperamide 2 mg capsule (Imodium 2 mg PO Q4HPRN PRN loose stool 09/17/23 09/17/23 History
A-D)
prednisone 10 mg tablet 10 mg PO DAILY Anti-Inflammatory 09/17/23 09/17/23 History
sertraline 100 mg tablet 100 mg PO Q48H Mental 09/17/23 09/17/23 History
Health/Anxiety
Review of Systems
-
Unable to obtain full review of systems at this time due to: Dementia
Physical Exam
Vital Signs
Temp Pulse Resp BP Pulse Ox
98.4 F 119 35 150/106 93
09/22/23 03:35 09/22/23 07:15 09/22/23 07:15 09/22/23 06:51 09/22/23 07:16
Lab Results
09/22/23 03:14
Physical Exam
General: Well Developed, Well Nourished, No Apparent Distress and Comfortable
HEENT: Normocephalic, Anicteric and Moist Mucous Membranes
Respiratory: Wheezes, Rhonchi and Accessory Resp Muscle Use
Cardiac: S1/S2 and Regular Rhythm; Negative Peripheral Edema
Breast: Deferred by me
GI: Soft, Non Tender, Non Distended and Normal Bowel Sounds
Rectal: Deferred by Provider
Genito-urinary: No Costovertebral Tender
Musculoskeletal: No Clubbing, No Cyanosis and No Edema
Skin: Warm and Dry
Neuro: AO x 3
Hematologic/Lymphatic: No Lymphadenopathy
Psych: Calm
Impression / Plan
-
BACKGROUND: 73M with symptomatic bradycardia (69% burden), mild to moderate nonobstructive coronary artery disease, mitral valve prolapse with mild to moderate mitral regurgitation, hyperlipidemia, former tobacco use (cigars), pulmonary fibrosis
with oxygen dependence, BPH, and Lewy body dementia presenting with abdominal pain.
Healthcare Architect: Dr. Morrissey
Acute on chronic hypoxic respiratory failure
-He wears 3 L intermittently at home, not continuous
-Currently on high flow nasal cannula at 50 L/min with 100% FiO2
-proBNP pending
Sinus tachycardia
-Now in sinus rhythm
-BMP pending
-This is in the setting of acute illness
Small bowel obstruction with ileus
-Etiology inflammatory versus infectious, less likely ischemic
-Lactic acid 1.2 this morning
-NGT placed overnight for vomiting
-Plan for PICC line and TPN, per general surgery
Hypokalemia, K2.7 this morning, await updated BMP
Prior symptomatic bradycardia (lightheadedness and fatigue), 69% bradycardic burden on Holter monitor (07/2019); lowest heart rate 41 bpm, average 57 BPM; maximum RR interval 2 seconds
MVP, late bileaflet mitral valve prolapse with mild to moderate mitral regurgitation (2019)
CAD, non obstructive, plan was for medical management, currently NPO
Pulmonary fibrosis, on daily prednisone at home
Lewy body dementia
DATA:
Echocardiogram, 08/20/2019
-Left ventricular ejection fraction is 55-60%. Normal regional wall motion.
Stage I diastolic dysfunction suggestive of abnormal relaxation.
-Normal right ventricular size and function.
-Mildly to moderately dilated left atrium.
-Late systolic bileaflet mitral valve prolapse with mild to moderate mitral
regurgitation.
-Trileaflet aortic valve. Aortic valve opens normally. Mild aortic
regurgitation.
-Mild tricuspid regurgitation. Estimated pulmonary artery pressure of 15-20
mmHg, assuming a right atrial pressure of 0-5 mmHg.
Compared to previous echo on 10/14/16, mild mitral valve prolapse is now noted
with mild to moderate mitral regurgitation.
Holter, 07/2019:
Sinus rhythm with an average heart rate of 57 BPM (range 41-131 BPM).
Bradycardic predominance of 69%; maximum R-R interval 2.01 seconds. Rare PACs
and very brief atrial runs.
Data Reviewed
-
EKG: Report Reviewed by me (Sinus tachycardia with PACs, LAFB, rate 119)
Radiology: Report Reviewed by me (CXR: Interval NG tube placement. Otherwise stable exam.)
CT Scan: Report Reviewed by me (09/20/2023: Interval worsened appearance of small bowel obstruction with multiple dilated proximal and mid small bowel loops with likely transition point within the right lower quadrant. Significantly distended
stomach.)
Medical Tests (Nuc Med, Echo etc): Report Reviewed by me (Prior echocardiogram as above)
Labs: Labs Reviewed by me
Old Records: Reviewed
--- NOTE | 2023-09-22 08:30 | PTCARENOTE ---
Rec'd pt from IMU at 0700. A second RR was called at 0700 and decision made to move pt over to ICU for closer monitoring. Dr. Dill in to see pt. Rec'd pt arousable but lethargic. Will open eyes and mumble a few words but no actual conversation nor
will pt follow commands. Pt with bilat soft wrist restraints and mitts for safety. GODFREY at 3mm. THOMAS but weakly and legs are stiff. Soft wrist and mitts on pt as pt has IV's and an NG to protect removal. Does have hand tremors and will stimulation
some body shaking. Skin is pale pink wm and dry. Respirs- Rec'd pt on High Flow 50L/100% with sats currently at 92-93%, Respirs are tachypnic and labored. MORENO and Dyspnea at rest. Shallow with abd breathing. BS are coarse with scattered crackles
throughout. Monitor ST. + pulses. No edema. VS as documented. Pts BP has been running in the 70-80's syst Adrian Dill and Shaq aware and will monitor currently. IV fluids stopped on arrival to ICU. ABd is round and soft with hypoactive BS. [place]
NG intact R nare to low int suction- placement checked. Irrigated without difficulty. Draining yellowish drainage. Incont of a scant amt of delaney urine. KCL 40 meq rider infusing via R hand/wrist IV site. Capped int intact L hand Pt repositioned.
Skin and mouth care given. Pts in- expressed a lot of concern about the care and why he didn't have a PICC Line or TPN and the desire for transfer to [facility]. Informed this RN that there was an accepting MD Dr. Madi Cuellar at [facility]. updated
and Drs. New and Aniyah updated. [facility] transfer center contacted and aware. No beds currently but working on one. Labs sent as ordered. Blood culture sent.
[2023-09-22 08:32] LABS: APTT 32.8 Sec (23.4-35.0); PT 18.9 Sec (11.4-14.6)
[2023-09-22 08:44] LABS: NT-proBNP 3720 pg/ml; Troponin I 0.032 ng/ml
[2023-09-22 09:08] LABS: Blood Urea Nitrogen 13 mg/dl (9-20); Calcium 8.1 mg/dl (8.4-10.2); Carbon Dioxide 30 mmol/L (22-30); Chloride 107 mmol/L (98-107); Estimated Creatinine Clearance 97 ml/min; Glucose 99 mg/dl (70-99); Magnesium 1.8 mg/dl (1.6-2.3); Potassium 3.3 mmol/L (3.5-5.1); Sodium 141 mmol/L (135-145); eGFR > 60.00
[2023-09-22] MEDS: SOLU-MEDROL PF 60 MG IV (09:13)
[2023-09-22] MEDS: PROTONIX IV 40 MG IV (09:13)
[2023-09-22] MEDS: FLUSH (NSS) 1 FLUSH IV ×3 (09:14→18:02)
[2023-09-22] MEDS: NSS (PRESERVATIVE FREE) 10 ML IV (09:15)
--- NOTE | 2023-09-22 09:15 | PTCARENOTE ---
1st KCL rider completed and 2nd KCL rider hung via R hand/Wrist IV Site. Solumedrol 60 mg IV given as ordered. Dr. Dill in to speak with pt along with Dr. New. IV fluids held since pt transferred from IMU at 0700. Sats on the High flow
50L/100% have been 92-94%. HR overall is improved an is SR in the 80's. Repositioned.
--- NOTE | 2023-09-22 09:48 | PHA.VAN.IN ---
Addendum entered and electronically signed by Camille Faust Charley 09/22/23 10:45:
Agree with pharmacy retail support specialist's assessment and plan below
Original Note:
Assessment
- Assessment
Renal Function: Appears similar to baseline
Concomitant Antimicrobials: PIP/TAZO
AUC Dosing Plan
- Dosing Variables
Dosing Weight (kg): 75
Dosing CrCl (ml/min): 97
Vd coefficient (L/kg): 0.7
- Empiric Dosing
Initial / Loading Dose: 2000mg - 09/21 04:23
Maintenance Regimen: 1000mg Q12H starting at 09/21 1800
Estimated AUC (mcg*h/mL): 468
Estimated Peak (mcg*h/mL): 29.8
Estimated Trough (mcg/ml): 11.7
Estimated Half Life (H): 8.2
- Monitoring
No levels ordered at this time: consider in the next few days
MRSA Screen: Ordered per protocol
Pharmacokinetics Vancomycin I
- -
Patient Age: 73
Patient Sex: Male
Vancomycin Day #: 1
Indication: Pulmonary/Respiratory
Requesting Provider: Dr Dill
Pertinent Antimicrobial Allergies:
NKDA
Height / Weight:
Height 5 ft 10 in
Actual Weight 75 kg
- Vital Signs / Lab Results
Temp Pulse Resp BP Pulse Ox
98.4 F 119 35 150/106 93
09/22/23 03:35 09/22/23 07:15 09/22/23 07:15 09/22/23 06:51 09/22/23 07:16
Lab Results - Hematology
09/20/23 09/22/23
06:07 03:14
WBC 12.9 H 13.9 H
Lab Results - Chemistry
09/20/23 09/22/23 09/22/23
06:07 03:14 08:03
BUN 19 14 13
Creatinine 0.6 L 0.6 L 0.7
Estimated Creat Clear 113 113 97
Albumin 3.4 L
09/22/23
03:14
Lactic Acid 1.2
Microbiology Results
09/19/23 12:12 Blood Culture - Preliminary
Blood/Venous No Growth in 48 hours- Final report to follow
09/20/23 12:26 Salmonella/Shigella Culture - Preliminary
Feces/Stool Culture in Progress
Campylobacter Culture - Preliminary
Culture in Progress
- Preliminary
Culture in Progress
Shiga Toxin Test - Final
No E. coli Shiga Toxin 1 or 2 detected.
09/20/23 12:26 C. difficile GDH Antigen & Toxins - Final
Feces/Stool Negative for toxigenic C.difficile
--- NOTE | 2023-09-22 10:15 | PTCARENOTE ---
UA ordered on pt. Pt st cathed for 190 mls of delaney urine and urine sent as ordered. Vanco MRSA swab sent as well labs. Family remains at the bedside. Pt decreased to 50L/80% on the High Flow and sats are 93-94%. Dr. New in and aware. ECHO
being done currently. Assessment is otherwise unchanged. Lethargic but sl more arousable.- BP is improving and HR remains in the 80's SR. Updates given to [facility] as pt is tenatively scheduled to be transferred to [facility] once bed
available.
[2023-09-22 10:26] LABS: Urine Albumin Trace (Neg - Trace); Urine Bilirubin Negative (Negative); Urine Character Clear (Clear); Urine Color Yellow; Urine Glucose Negative (Negative); Urine Ketone Negative (Negative); Urine Leukocyte Negative (Negative); Urine Nitrite Negative (Negative); Urine Occult Blood Negative (Negative); Urine Urobilinogen Negative (Neg - 1+)
--- NOTE | 2023-09-22 11:00 | PTCARENOTE ---
Pt tolerating the decrease in High flow- remains on 50L and 80% with sats of 93-94%. Pt still lethargic but overall more wakeful. Any speech is garbled and does not follow commands. Mitts and wrist restraint in place. Remote monitoring in place.
Incont of a mod amt of loose brown stool. Partial bath given. Repositioned. Pts son who is a physician in from [place]- Updated by nursing staff and Dr. New.
--- NOTE | 2023-09-22 11:00 | W.PN.UPDATE ---
Addendum entered and electronically signed by Patrick Dill MD 09/22/23 17:10:
Addendum
[facility] has a bed for the patient.
d/w ICU doctor, will modify supplemental oxygen to NRB with nasal O2 at 6 liters, will follow SaO2.
Total discharge time spent to see the patient, examine the patient on the floor, review data and lab results, discuss discharge plan with consultants, [facility], , nursing staff around 67 minutes.
Original Note:
Update Note
Progress Note Update
Patient is seen again in ICU with and his son Immanuel at bed side.
Pt looked comfortable, better than earlier in the day, still on high flow O2 50 liters at 100% FiO2. Sinus tachycardia has resolved. HR around 70-80.
I called [facility] transfer center, updated the accepting surgeon Dr Cuellar about change in status. Son of the patient Dr Fredy Rodriges had already called Dr Cuellar( they know each other). I was told that patient was set up for surgical ICU bed. I
informed Dr Cuellar about the hypoxia and high flow oxygen status. I also offered to speak to medicine service doctor/ICU doctor or pulmonary doctor as part of transfer protocol. They have my cell number and Im available to discuss pt/s status with
[facility] doctors. of pt ( meme) was standing next to me and she heard my call to [facility] transfer center. No bed available as of now.
I also spoke again to pt's son ( Fredy).
Our ICU doctor is evaluating the patient and talking to the family, help appreciated.
[2023-09-22 11:12] LABS: Procalcitonin 2.32 ng/ml (0.0-0.25)
--- NOTE | 2023-09-22 11:29 | W.PN.GS2 ---
Addendum entered and electronically signed by Kam Cardenas MD 09/22/23 12:48:
Patient seen and examined. Agree with assessment plan as documented below.
Disoriented and acutely ill limiting subjective portion of exam. Reported vomiting overnight and hypoxia.
Gen: NAD
Abd: soft, NT/ND, non-peritoneal, exam limited by metal status
Patient is a 73 yo M with high grade partial SBO
Follow up CT imaging 09/19 with persistent signs of SBO and clinically remains obstructed.
Persistent WBC and dilated bowel radiographically despite benign exam. High need for surgical management. Complex from pulmonary standpoint.
Patient's son is a physician and family wishing to transfer there for further care.
Plan:
-- Pt for transfer to [facility] as soon as bed available
-- Continue NPO, IVF, NGT to suction
-- Available for assistance with care while remains in
Original Note:
Today's Communication / Plan
-
transfer to [facility]
Continue ngt
Assessment / Plan
-
Assessment: 73 y/o male with probable SBO with transition point in RLQ
follow up CT imaging 09/19 with persistent signs of SBO and clinically remains obstructed. NGT placed overnight after vomiting with low outputs.
Patient's son is a physician at [employer] and family wishing to transfer there for further care.
Plan: pt for transfer to [facility] as soon as bed available
continue NGT to suction
available for assistance with care while remains in
i
Subjective Data
-
Date of Service: September 22, 2023
Patient seen and examined at bedside with family present. Disoriented and acutely ill limiting subjective portion of exam. Reported vomiting overnight and hypoxia.
Objective Data
-
Intake and Output
09/21/23 09/22/23 09/23/23
06:59 06:59 06:59
Intake Total 1550 / 1550 1475 / 1475
Balance 1550 / 1550 1475 / 1475
Intake:
Oral fluids 0 / 0 0 / 0
IV fluids (Total) 1500 / 1500 1375 / 1375
IV piggybacks 50 / 50 100 / 100
Other:
How many times incontinent 3 1
MODERATE amount urine
How many times incontinent 3 1
SATURATED amount urine
Number of immeasurable emeses? 1
Vital Signs
Temp Pulse Resp BP Pulse Ox
99.5 F 84 32 114/69 94
09/22/23 11:00 09/22/23 11:00 09/22/23 10:30 09/22/23 11:00 09/22/23 11:00
Lab Results
09/22/23 03:14
Calcium 8.1 mg/dl (8.4-10.2) L 09/22/23 08:03
Magnesium 1.8 mg/dl (1.6-2.3) 09/22/23 08:03
Total Bilirubin 1.1 mg/dl (0.2-1.3) 09/20/23 06:07
AST 38 U/L (17-59) 09/20/23 06:07
ALT 24 U/L (0-50) 09/20/23 06:07
Alkaline Phosphatase 59 U/L (38-126) 09/20/23 06:07
Total Protein 6.1 g/dl (6.3-8.2) L D 09/20/23 06:07
Albumin 3.4 g/dl (3.5-5.0) L 09/20/23 06:07
Physical Exam
-
Increased RR, increased work of breathing
ABD: softly distended, nontender, no R/R/G, NGT with minimal outputs
--- NOTE | 2023-09-22 12:06 | CON.ID ---
Consultation
-
Date/Time Consultation Requested: September 22, 2023 0725
Date/Time Consultation Performed: September 22, 2023 1200
Requesting Provider: Dr. Carmencita Dill
Performing Provider: Dr. Klarissa Groves
Reason for Consultation: Fever/SOB
Chief Complaint / Past History
Chief Complaint
Nausea and vomiting
History of Present Illness
History obtained from his son and at bedside. His son is an interventional radiologist at [facility] [facility]. Mr. Rodriges is a 73-year-old male with dementia, pulmonary fibrosis on 2-3L home O2 with activity and prednisone 10 mg daily who presented
to the hospital on September 16 with intractable nausea and vomiting. Per son patient has been having poor appetite for about a week prior to admission. He then developed abdominal distention with nausea and vomiting. No fevers at home. Admission
white count was 14.7. Abdominal x-ray showed partial small bowel obstruction. CAT scan of the abdomen and pelvis initially showed jejunitis, developing obstruction cannot be excluded. Patient continued to have nausea and vomiting. On September 19,
repeat CT of the abdomen pelvis showed interval worsening of small bowel obstruction with multiple dilated proximal and mid small bowel loops, significantly distended stomach. Patient has been accepted at [facility]
surgical service pending bed availability. Patient has been on Zosyn since admission. Yesterday September 20 afternoon, he had fever of 100.7. Overnight he developed acute respiratory distress with shortness of breath, hypoxic requiring
nonrebreather. Today he is on high flow nasal cannula. Vancomycin was added to the Zosyn. Today's Chest x-ray showed extensive diffuse bilateral interstitial and airspace opacities. Per son, compared to outside previous chest x-ray, there is
change with increased opacity especially the left side. NG tube was placed today. He is having bowel movements today. No cough. No ill contacts. No travel history. No history of abdominal surgeries.
Past History
Additional Past Medical History:
Dementia
Pulmonary fibrosis on prednisone 10mg
Chronic hypoxemic respiratory failure on home O2 2 to 3 L
Nonobstructive CAD
Dyslipidemia
Urinary incontinence
AAA
history of REM behavioral disorder/narcolepsy
Bilateral knee surgery
Allergy History:
No Known Allergies Allergy (Verified 09/17/23 13:36)
Medications Reviewed: Yes
Current Antibiotics:
Vancomycin d1
Zosyn d 4
Social History
Tobacco: Smoker (cigars)
Alcohol: Occasional
Drug: None
Personal:
Family History
Family History: Not Pertinent
Review of Systems
Review of Systems
Unable to obtain due to dementia.
Vital Signs
Temp Pulse Resp BP Pulse Ox
99.5 F 83 36 114/69 94
09/22/23 11:00 09/22/23 11:34 09/22/23 11:34 09/22/23 11:00 09/22/23 11:34
Selected Entries
09/21/23
15:15
Temp 100.7 F H
Physical Exam
Physical Exam
Constitutional: Acutely Ill
Head: Other (No frontal or maxillary sinus tenderness.)
Eyes: No Conjunctival Hemorrhage and Sclera Anicteric
Cardiovascular: Regular Rate and S1/S2
Pulmonary: Coarse (crackles bilaterally)
Gastrointestinal: Soft, Non Tender, Distended (mild) and Decreased Bowel Sounds
Genito-Urinary: Negative CVA Tenderness
Extremities: Edema (ankle edema)
Musculoskeletal: Negative Joint Swelling or Joint Effusion
Neurological: Awake
Psychological: Confused
Lab / Diagnostic Study Results
09/22/23 03:14
Abs Immat Gran (auto) 0.1 10^3/uL (0-0.05) H 09/22/23 03:14
Absolute Neuts (auto) 12.2 10^3/uL (1.4-6.5) H 09/22/23 03:14
Absolute Lymphs (auto) 0.7 10^3/uL (1.2-3.4) L 09/22/23 03:14
Absolute Monos (auto) 0.8 10^3/uL (0.1-0.6) H 09/22/23 03:14
Absolute Basos (auto) 0.1 10^3/uL (0-0.2) 09/22/23 03:14
Immature Gran % 0.4 % (0-0.5) 09/22/23 03:14
Neutrophils % 87.3 % (42.2-75.2) H 09/22/23 03:14
Lymphocytes % 5.0 % (20.5-51.1) L 09/22/23 03:14
Monocytes % 6.0 % (1.7-9.3) 09/22/23 03:14
Eosinophils % 0.9 % (0-6) 09/22/23 03:14
Basophils % 0.4 % (0-2) 09/22/23 03:14
PT 18.9 Sec (11.4-14.6) H 09/22/23 08:03
INR 1.60 09/22/23 08:03
Lactic Acid 1.2 mmol/L (0.7-2.0) 09/22/23 03:14
Procalcitonin 2.32 ng/ml (0.0-0.25) H* 09/22/23 09:37
Microbiology Results
Micro:
09/22/23 09:37 Nasal Screen MRSA (PCR) - Final
Nose MRSA not detected - performed by PCR methodology.
09/19/23 12:12 Blood Culture - Preliminary
Blood/Venous No Growth in 48 hours- Final report to follow
09/22/23 08:03 Blood Culture - Pending
Blood/Venous
09/20/23 12:26 Salmonella/Shigella Culture - Preliminary
Feces/Stool Culture in Progress
Campylobacter Culture - Preliminary
Culture in Progress
- Preliminary
Culture in Progress
Shiga Toxin Test - Final
No E. coli Shiga Toxin 1 or 2 detected.
09/20/23 12:26 C. difficile GDH Antigen & Toxins - Final
Feces/Stool Negative for toxigenic C.difficile
09/17/23 CT a/p: Mild small bowel dilatation with associated mild small bowel wall thickening of the probable distal jejunum. Differential diagnosis of the wall thickening includes inflammation, infection and less likely ischemia.. Limited evaluation
without oral contrast.. Dilatation may be due to ileus. Developing obstruction cannot be excluded.
09/19/23 most consistent with small bowel obstruction.
09/20/23 CT a/p: Interval worsened appearance of small bowel obstruction with multiple dilated proximal and mid small bowel loops with likely transition point within the right lower quadrant. Significantly distended stomach. Interval improvement of
thickened small bowel loops within the right lower quadrant at the site of transition with mild mesenteric edema. Small amount of pelvic ascites, improved compared to the prior CT.
09/21/23 AXR: Mild interval improvement in dilatation of the stomach and small bowel loops.
09/22/23 CXR: Extensive diffuse bilateral interstitial and airspace opacities which likely reflects severe multifocal pneumonia/pneumonitis. Developing ARDS not excluded.
09/22/23 TTE: Normal left ventricular size, wall thickness and systolic function.
LV ejection fraction is 60-65% by visual assessment.
Enlarged right ventricular size with mildly reduced systolic function.
Mild to moderate mitral regurgitation.
Mild aortic regurgitation.
Moderate pulmonary hypertension
Dilated aortic root 4.1 cm.
Assessment / Plan
# Fever x 1
# Leukocytosis - on steroid
# Acute on chronic hypoxemic respiratory failure
- CXR extensive interstitial and airspace opacity
- DDX : aspiration pneumonia vs. volume overload (BNP 3720) vs. ILD flare
- Check COVID antigen
- MRSA screen negative - dc Vancomycin.
- Zosyn with high sodium load and may worsen volume status.
Replace Zosyn with meropenem 500mg IV q6.
- Now on methylprednisone per Pulm.
- Follow blood cx.
- Follow temps/wbc
# High grade partial SBO
- Improved with NGT decompression
-Awaiting transfer to [facility].
# Conditions [employer]
Dementia
Pulmonary fibrosis on prednisone 10mg
Chronic hypoxemic respiratory failure on home O2 2 to 3 L
Nonobstructive CAD
Dyslipidemia
Urinary incontinence
AAA
history of REM behavioral disorder/narcolepsy
Bilateral knee surgery
--- NOTE | 2023-09-22 12:45 | PTCARENOTE ---
No changes in asssessment. Family at the bedside. KCL rider infusing. Remains lethargic but wakeful with stimulation. States he is comfortable. Resp therapy in and O2 weaned to 50L/70% sats currently 89-90%
--- NOTE | 2023-09-22 13:29 | CM ---
CM following re: discharge planning.
Discussed in rounds, reviewed pt's chart. per rounds meeting a plan is to transfer the pt to [facility].
Awaiting transfer to [facility] for further care.
D/C plan: transfer to [facility].
CM will follow to assist pt with transfer to [facility].
[2023-09-22] MEDS: D5/0.9% SODIUM CHLORIDE IV (13:43)
--- NOTE | 2023-09-22 14:30 | PTCARENOTE ---
Labs sent per MD order
--- NOTE | 2023-09-22 14:45 | PTCARENOTE ---
Remains resting with family at the bedside. Pt mostly with eyes shut but will open them to stimuli. Tends to mumble/have garbled speech. Any converstation is confused. Follows no commands. Hand tremors with stimulation. Has remained on High Flow
50L/70%. Occasionally will cough. Expectorated a small amt of whitish secretions. Sats mostly 92-94%. Monitor SR unless turning then borderline Sinus Tach. NG draining yellowish drainage-small amt. KCL riders complete. Pt to start TPN - as such IV
team in and R arm PICC Line placed. Site wnl. Pt repositioned.
[2023-09-22 15:13] LABS: ALT (SGPT) 46 U/L (0-50); AST (SGOT) 40 U/L (17-59); Albumin 2.7 g/dl (3.5-5.0); Alkaline Phosphatase 64 U/L (38-126); Blood Urea Nitrogen 15 mg/dl (9-20); Calcium 8.4 mg/dl (8.4-10.2); Carbon Dioxide 29 mmol/L (22-30); Chloride 107 mmol/L (98-107); Estimated Creatinine Clearance 97 ml/min; Glucose 118 mg/dl (70-99); Magnesium 1.8 mg/dl (1.6-2.3); Phosphorus 1.8 mg/dl (2.5-4.5); Potassium 3.6 mmol/L (3.5-5.1); Sodium 141 mmol/L (135-145); Total Bilirubin 1.5 mg/dl (0.2-1.3); Total Protein 5.3 g/dl (6.3-8.2); Triglycerides 86 mg/dl (10-149); eGFR > 60.00
[2023-09-22] MEDS: LASIX 40 MG IV (15:29)
[2023-09-22] MEDS: SOLU-MEDROL PF 40 MG IV (15:41)
--- NOTE | 2023-09-22 15:45 | PTCARENOTE ---
Rec'd word from [facility] that pt has a bed at [facility] Rm [address] in [address] Family aware. Pt turned and repositioned. Incont of a mod-large amt of urine. #25 Condom cath placed and pt given Lasix [address] New in
and in anticipation of transfer pt placed on 6L nc and 100% NRB mask with sats of 92-95%. Will leave on the NRB and NC. Skin and mouth care given
[2023-09-22] MEDS: POTASSIUM PHOSPHATE 259.0909 MEQ IV (15:59)
[2023-09-22 16:40] LABS: COVID-19 Antigen Negative (Negative)
--- NOTE | 2023-09-22 17:10 | PTCARENOTE ---
Diuresing from Lasix. Still with shallow tachypnic breathing most of the day- at times more labored than at other times. Per Dr. New pt placed back on High FLow 50L/100 and and 100% NRBmask until transfer which is slated for 1830. Sats are
97%.
[2023-09-22 17:15] LABS: Glucose - Point of Care 107 mg/dl (70-99)
--- NOTE | 2023-09-22 17:44 | PTCARENOTE ---
Report called to [facility].
[2023-09-22] MEDS: MERREM 500 MG IV (18:01)
[2023-09-22] MEDS: STERILE WATER FOR INJECTION 10 ML IV (18:01)
[2023-09-22] MEDS: LOVENOX 40 MG SC (18:01)
--- NOTE | 2023-09-22 19:19 | PTCARENOTE ---
[facility] here and pt transferred on to stretcher with 6L cannula and 100% NRB mask for transport. Sats 97%. Pt arousable with garbled speech. Family at bedside with pt. No other changes. Belongings taken home by family.
[2023-09-22] MEDS: DUONEB INH (19:50)
== END 2023-09-22 19:15 | disposition short-term general hospital (02) | DRG 388 ==
LOC: ICU 10:13
PROVIDERS: Internal Medicine Gastroenterology; Physician Assistant; Registered Nurse; ADMITTING PHYSICIAN Internal Medicine; ATTENDING PHYSICIAN Internal Medicine; CONSULT PHYSICIAN Internal Medicine Critical Care Medicine; CONSULT PHYSICIAN Internal Medicine Infectious Disease; CONSULT PHYSICIAN Surgery; EMERGENCY PHYSICIAN Emergency Medicine; FAMILY PHYSICIAN Internal Medicine; OTHER PHYSICIAN Nurse Practitioner Gerontology
PROC: 0D9670Z Drainage of Stomach with Drainage Device, Via Natural or Artificial Opening (ICD-10-PCS; 2023-09-22)
DX: K56.600 Partial intestinal obstruction, unspecified as to cause (principal); J96.21 Acute and chronic respiratory failure with hypoxia; F03.911 Unspecified dementia, unspecified severity, with agitation; A09 Infectious gastroenteritis and colitis, unspecified; E87.3 Alkalosis; J84.10 Pulmonary fibrosis, unspecified; E87.6 Hypokalemia; R32 Unspecified urinary incontinence; I25.10 Atherosclerotic heart disease of native coronary artery without angina pectoris; I71.43 Infrarenal abdominal aortic aneurysm, without rupture; I08.1 Rheumatic disorders of both mitral and tricuspid valves; I27.20 Pulmonary hypertension, unspecified; F17.290 Nicotine dependence, other tobacco product, uncomplicated; Z79.52 Long term (current) use of systemic steroids
CPT/HCPCS: 36600; 71045; 74018; 74177; 80048; 80053; 81003; 82805; 82962; 83605; 83690; 83735; 83880; 84100; 84145; 84478; 84484; 85025; 85027; 85610; 85730; 86140; 87040; 87045; 87046; 87324; 87427; 87449; 87641; 87811; 93005; 93306; 93970; 94640; 96361; 96365; 96375; 97116; 97163; 97167; 97530; 97535; 99285; Q9967